=== PATIENT | female | born 1995 | race Caucasian/White ===

== ENCOUNTER 2020-08-27 13:59 | Emergency (ER) | payer OTHER, SELFPAY ==
[2020-08-27 14:01] VITALS: BP 149/87; PULSE 115; RESP 18; O2SAT 100; BMI 27.4
--- NOTE | 2020-08-27 14:30 | ED_ITS ---
HPI - Psych General Chief Complaint: Psychiatric Symptoms Stated Complaint: crisis Time Seen by Provider: 08/27/20 14:15 Source: patient Mode of arrival: ambulatory Limitations: no limitations History of Present Illness HPI Narrative: 24 y/o female with history of anxiety and depression presents with overwhelming depression and vague suicidal thoughts for the last 1 month. She states for the last 4-5 days she has not gotten off of her couch. She has visions and dreams of what it would be like if she weren't alive but she denies a specific plan. Has never attempted suicide in the past. She has been off of her antidepressant for over 1 year. She has a difficult time following up with her doctors and taking care of herself. She admits to using cocaine frequently since March. Denies other drug use or ETOH use. Related Data Home Medications Medication Instructions Recorded Confirmed bupropion HCl 150 mg 24 hr tablet, 150 mg PO QAM 06/08/20 extended release fluoxetine 20 mg capsule 20 mg PO DAILY 06/08/20 Allergies Allergy/AdvReac Type Severity Reaction Status Date / Time No Known Allergies Allergy Verified 08/27/20 14:09 [No Known Allergies*] Review of Systems Review of Systems: Constitutional: No Fever, No Chills Cardiovascular: No Chest Pain, No SOB Respiratory: No Cough, No Sputum Gastrointestinal: No Nausea, No Vomiting, No Diarrhea, No abdominal Pain Genitourinary: No Dysuria, No Urinary Frequency, No Hematuria Musculoskeletal: No joint pain, +Myalgias Skin: No Skin Lesions, No rash Neuro: No Weakness, No Numbness, No Dizziness, + Headache Psych:+ Anxiety/Panic, + Depression Heme/Lymph: No Bruising, No Lymphadenopathy [facility] Past Medical History Attestation statement: The following information was validated with the patient. Medical History Anxiety, generalized Depression, major, recurrent, moderate Surgical History (Updated 06/08/20 @ 14:23 by NICOLE Hawthorne, DAMASO) No pertinent past surgical history Family History Family History (Updated 06/08/20 @ 14:24 by NICOLE Hawthorne, DAMASO) Father No problems noted. Mother No problems noted. Paternal Grandfather Cancer Brother No problems noted. Brother No problems noted. Social History Social History Alcohol intake: current Alcohol intake frequency: holidays/special occasions only Smoking Status: Never smoker Use of substances other than those prescribed or required for medical reasons: Yes Substance Use Type: Crack/Cocaine and Marijuana Substance Use Frequency: Daily Last Used Substance: Just Prior to Admission Advance Directives: No Advance Directives Information Provided: Yes Physical Exam Vital Signs: Vital Signs: Last Vital Signs Temp 98.8 F 08/27/20 16:09 Pulse 73 08/27/20 16:09 Resp 16 08/27/20 16:09 BP 128/80 08/27/20 16:09 Pulse Ox 99 08/27/20 16:09 Body Mass Index 27.4 Appearance: Alert. Oriented X3. No acute distress. Eyes: Pupils equal, round and reactive to light. ENT: Pharynx normal. Neck: Normal inspection. Neck supple. CVS: Normal heart rate and rhythm. Pulses normal. Respiratory: No respiratory distress. Breath sounds normal. Abdomen: Soft and nontender. +BS x4 Skin: Skin warm and dry. Normal skin color. Normal skin turgor. No rashes. Extremities: No lower extremity edema. Neuro: Oriented X 3. No motor deficit. No sensory deficit. Speaks in clear sentences Psych: depressed with good insight, not suicidal, no delusions, linear thought process Course Course Course Narrative: 24 y/o female presenting with severe depression and vague SI thoughts. Recently missed out on a respite bed which she seems interested in pursuing now. Will get Utox and UA and CARE Team evaluation. ?EATS bed given her cocaine use. Will monitor closely. Low risk for self harm in the ED. MDM - Psych Lab Data Labs: Lab Results 08/27/20 Range/Units 15:04 COVID-19 ([facility]) Negative (Negative) COVID-19 Clin Com See Note Discharge Plan Discharge Clinical Impression: Depression, major, recurrent, moderate
--- NOTE | 2020-08-27 14:31 | MHC.CARE ---
CARE team contacted [facility] re: pt who presented to ED at the recommendation of N crisis. Pt was not evaluated by [facility] prior to arrival. Due to pt's insurance, once medically cleared pt will be seen by CARE team for crisis assessment.
--- NOTE | 2020-08-27 14:52 | PC.NURSE ---
patient a&ox3, pt states she has had felt very depressed, patient was tearful while this nurse was speaking with her, pt states since march she started using cocaine daily also smokes pot daily and feels guilty over her drug use, pt states at times while laying on her couch at home that she envisions jumping off a bridge to kill herself however she stated that she doesnt have the guts to follow through with her thoughts. patient is aware that we need a urine sample when she is able and that she will have a crisis consult while here.
[2020-08-27 15:32] LABS: COVID-19 Test Negative (Negative); IDNOW Serial# 9DD0AD1C
[2020-08-27 16:09] VITALS: BP 128/80; PULSE 73; RESP 16; TEMP 37.1; O2SAT 99
[2020-08-27 18:00] VITALS: BP 135/76; PULSE 81; RESP 16; TEMP 36.4; O2SAT 99
--- NOTE | 2020-08-27 18:48 | PC.NURSE ---
patient has been calm/cooperative sitting doing word searches, no c/o pain or discomfort, sitter at bedside, will continue to monitor
--- NOTE | 2020-08-27 19:02 | PC.NURSE ---
care team speaking with patient
[2020-08-27 19:29] LABS: Glucose Urine UA NEG (NEG); Leukocyte Esterase Urine NEG (NEG); Nitrite Urine NEG (NEG); Specific Gravity - Urine <= 1.005 (1.005-1.025); Urine Blood TRACE (NEG); Urine Ketones NEG (NEG); Urine Protein NEG (NEG-TRACE)
[2020-08-27 19:31] LABS: Appearance Urine CLEAR; Color Urine YELLOW
--- NOTE | 2020-08-27 19:40 | MHC.CARE ---
Pt evaluated by CARE team with disposition for inpatient psychiatric treatment. Due to pt not being an acute risk to harm herself, pt will discharge from ED this evening and return home to await planned facility admission. Pt reported that she is able to self-preserve, has no hx of suicide attempts or self harm, and will be home with her fiance. CARE team will fax pt's assessment to [facility] for review. Pt has been instructed to call the facility in the morning for to schedule possible walk-in admission. CARE team will also present pt's evaluation to in the morning for possible admission, if an appropriate bed is available. CARE team to follow up with pt ~9AM for update re: possible admission to [facility] and if will or will not be able to accommodate admission.
[2020-08-27 19:43] LABS: RBC Urine 0-2 /HPF (0); Squamous Epithelial Cell Urine TRACE /LPF; WBC Urine 0-2 /HPF (0-4)
[2020-08-27 19:44] LABS: UPreg QC Valid YES; Urine Pregnancy NEGATIVE (NEGATIVE)
[2020-08-27 20:00] VITALS: BP 123/75; PULSE 71; RESP 16; TEMP 36.9; O2SAT 99
--- NOTE | 2020-08-28 15:37 | MHC.CARE ---
Disposition update: Voluntary bedsearch exhausted for today. Pt has been referred for PHP at [facility], with intake scheduled for 7:30am 08/29/20 with a same day program start.
== END 2020-08-27 21:09 | disposition home or self-care (01) ==
PROVIDERS: Physician Assistant; Emergency Provider Emergency Medicine Emergency Medical Services; PCP Internal Medicine
DX: F33.1 Major depressive disorder, recurrent, moderate (principal); R45.851 Suicidal ideations; F14.90 Cocaine use, unspecified, uncomplicated; F12.90 Cannabis use, unspecified, uncomplicated; Z79.899 Other long term (current) drug therapy
CPT/HCPCS: 36415; 81001; 81025; 87635; 99285

== ENCOUNTER 2020-09-13 05:07 | Emergency (ER) | payer OTHER, SELFPAY ==
[2020-09-13 05:38] VITALS: BP 138/80; PULSE 86; RESP 18; TEMP 36.8; O2SAT 100; BMI 28.3
--- NOTE | 2020-09-13 05:42 | ED_ITS ---
HPI - General Adult General Chief complaint: General Medical Stated complaint: Sinus infection Time Seen by Provider: 09/13/20 05:42 Source: patient Mode of arrival: ambulatory History of Present Illness HPI narrative: This is a 25-year-old female who states that she relapsed last night with cocaine and is now presenting with complaints that after starting the cocaine of both nares she developed acute pain up into the right side of her f yayo to include her eye but denies visual disturbance or pain on ocular movement and has tried multiple times to blow her nose in an effort to relieve the pressure but states this is not been possible. She states the pain extends posteriorly across the right side of her scalp. Related Data Previous Rx's Medication Instructions Recorded fluoxetine [Prozac] 20 mg PO DAILY #14 cap 08/29/20 trazodone 50 mg PO BEDTIME PRN #14 tab 08/29/20 baclofen 5 mg PO TID #30 tab 09/07/20 Allergies Allergy/AdvReac Type Severity Reaction Status Date / Time No Known Allergies Allergy Verified 08/27/20 14:09 [No Known Allergies*] Review of Systems Review of Systems: Pertinent positives and negatives as stated in HPI 10 point review of systems is otherwise negative. [facility] Past Medical History Source: nursing notes reviewed Medical History Anxiety, generalized Depression, major, recurrent, moderate Surgical History No pertinent past surgical history Family History Family History Father No problems noted. Mother No problems noted. Paternal Grandfather Cancer Brother No problems noted. Brother No problems noted. Social History Social History Household Members: Significant Other Alcohol intake: current Alcohol intake frequency: 0-2 drinks per day Smoking Status: Current every day smoker Years Smoked: Since age 18 Use of substances other than those prescribed or required for medical reasons: Yes Substance Use Type: Crack/Cocaine Substance Use Frequency: Chronic Longstanding Last Used Substance: Hours (ago) Advance Directives: No Physical Exam Vital Signs: Vital Signs: Last Vital Signs Temp 98.2 F 09/13/20 05:38 Pulse 86 09/13/20 05:38 Resp 18 09/13/20 06:00 BP 138/80 09/13/20 05:38 Pulse Ox 100 09/13/20 05:38 Body Mass Index 28.3 VITAL SIGNS: Reviewed. GENERAL: Well developed, well nourished, in no acute distress. HEAD: Normocephalic/atraumatic, EYES: PERRLA, EOMI intact without pain, no nystagmus EARS: Ext canals without abnormality, TMs non-bulging and non-erythematous NOSE: Congested bilaterally, no turbinate inflammation, null epistaxis, no noted perforations in the mucosa OROPHARYNX: no oral lesions noted, posterior pharynx clear NECK: Supple, no adenopathy LUNGS: Normal breath sounds. No adventitious sounds or accessory muscle use. SpO2<100> CARDIOVASCULAR: Regular rate and rhythm without noted murmurs ABDOMEN: Soft, non-tender, non-distended with bowel sounds. NEUROLOGIC: Alert and oriented x 4. Course Course Course Narrative: This is a 25-year-old female with development of sinus pain after snorting cocaine. Will provide combination analgesics as well as saline, however patient was informed that this may take some time to subside due to the amount of vasoconstriction involved. On re-evaluation patient reports complete resolution of her symptoms and states she is feeling much better. She will be discharged home in stable condition. Discharge Plan Discharge Clinical Impression: Cocaine abuse Patient Disposition: Home, Self-Care Instructions: Cocaine Abuse (ED), Sinusitis (ED) Additional Instructions: Do not hesitate to return to the emergency department should you experience any acute worsening of your symptoms. Prescriptions: No Action fluoxetine [Prozac] 20 mg capsule 20 mg PO DAILY Qty: 14 RF: 0 trazodone 50 mg tablet 50 mg PO BEDTIME PRN (Reason: sleep) Qty: 14 RF: 0 baclofen 5 mg tablet 5 mg PO TID Qty: 30 RF: 0 Referrals: Taryn Chen MD [Primary Care Provider] - 2 days
[2020-09-13 06:00] VITALS: RESP 18
--- NOTE | 2020-09-13 06:04 | PC.NURSE ---
provider at bedside.
[2020-09-13] MEDS: Acetaminophen 325 MG TABLET 975 MG PO (06:25)
[2020-09-13] MEDS: Ketorolac Tromethamine 15 MG/ML VIAL IM (06:25)
== END 2020-09-13 07:43 | disposition home or self-care (01) ==
PROVIDERS: Emergency Provider Student in an Organized Health Care Education/Training Program; PCP Internal Medicine
DX: F14.19 Cocaine abuse with unspecified cocaine-induced disorder (principal); J32.9 Chronic sinusitis, unspecified; Z79.899 Other long term (current) drug therapy; Z71.51 Drug abuse counseling and surveillance of drug abuser; F17.200 Nicotine dependence, unspecified, uncomplicated; Z71.6 Tobacco abuse counseling
CPT/HCPCS: 96372; 99284; J1885

== ENCOUNTER 2020-09-19 14:28 | Outpatient (REF) | payer OTHER, SELFPAY ==
--- NOTE | 2020-09-19 15:02 | ECG_ITS ---
Test Reason : COCAINE USE DISORDER Blood Pressure : / mmHG Vent. Rate : 065 BPM Atrial Rate : 065 BPM P-R Int : 120 ms QRS Dur : 094 ms QT Int : 370 ms P-R-T Axes : 018 066 047 degrees QTc Int : 384 ms Normal sinus rhythm Normal ECG No previous ECGs available Referred By: Tyesha Ho Electronically Signed By:ALEX CORRALES
[2020-09-19 15:49] LABS: MANUAL DIFF FLAG NO
[2020-09-19 15:54] LABS: Basophils Absolute Auto 0.1 X10*3/uL (0.0-0.2); Basophils Percent Auto 0.6 % (0-2); Eosinophils Absolute Auto 0.6 X10*3/uL (0.0-0.4); Hemoglobin 13.1 g/dl (12.0-16.0); Imm Gran Abs Auto 0.04 X10*3/uL (0.00-0.03); Imm Gran Pct Auto 0.3 % (0.0-0.4); Lymphocytes Absolute Auto 3.9 X10*3/uL (1.2-4.9); Mean Corpuscular HGB Conc 32.8 g/dl (31.0-35.0); Mean Corpuscular Hemoglobin 28.9 pg (27.0-33.0); Mean Corpuscular Volume 88.1 fL (80-98); Mean Platelet Volume 9.7 fL (9.4-12.3); Monocytes Absolute Auto 0.9 X10*3/uL (0.1-1.2); Monocytes Percent Auto 7.4 % (2-11); Neutrophils Absolute Auto 6.3 X10*3/uL (2.0-8.3); Neutrophils Percent Auto 53.7 % (45-73); Platelet Count 376 X10*3/uL (160-400); Red Blood Count 4.54 X10*6/uL (4.20-5.50); Red Cell Distribution Width 12.8 % (11.0-16.0); White Blood Count 11.7 X10*3/uL (4.8-10.8)
[2020-09-19 16:22] LABS: Alanine Aminotransferase 8 U/L (0-31); Albumin Level 4.2 g/dL (3.5-5.0); Alkaline Phosphatase 101 U/L (39-117); Anion Gap 14 (12-20); Aspartate Amino Transferase 13 U/L (5-31); Bilirubin Total 0.5 mg/dL (0.0-1.0); Blood Urea Nitrogen 6 mg/dL (9-16); Calcium 8.9 mg/dL (8.4-10.2); Carbon Dioxide 24 mmol/L (22-29); Chloride 105 mmol/L (96-108); Estimated Glomerular Filt Rate > 60; Glucose Random 85 mg/dL (60-115); Magnesium 2.3 mg/dL (1.6-2.6); Potassium 4.2 mmol/L (3.3-5.1); Sodium 139 mmol/L (135-145); Total Protein 7.1 g/dL (6.5-8.0)
[2020-09-19 16:48] LABS: Free T4 (Free Thyroxine) 0.87 ng/dL (0.71-1.85); Thyroid Stimulating Hormone 2.69 uIU/mL (0.32-4.0); Vitamin D 25-OH Total 10.6 ng/mL (>30)
[2020-09-19 16:54] LABS: Folate 6.1 ng/mL (> or = 4.0); Vitamin B12 312 pg/mL (200-900)
[2020-09-20 08:09] LABS: Estimated Average Glucose 105 mg/dL; Hemoglobin A1c % 5.3 %
== END 2020-09-19 14:29 | disposition home or self-care (01) ==
LOC: HO.LAB 14:28
PROVIDERS: PCP Internal Medicine; Visit Provider Clinical Nurse Specialist Psychiatric/Mental Health, Adult
DX: F14.10 Cocaine abuse, uncomplicated (principal)
CPT/HCPCS: 36415; 80053; 82306; 82607; 82746; 83036; 83735; 84439; 84443; 85025; 93005

== ENCOUNTER 2020-09-22 12:30 | Outpatient (RCR) | payer OTHER, SELFPAY ==
[2020-08-29 12:10] VITALS: BMI 27.4
--- NOTE | 2020-08-29 12:41 | PC.ADMIT ---
Patient is a 24 year old female who was seen and referred to PHP by the Care Team in [facility] d/t increase in depression and experiencing intrusive thoughts of and suicide for the past month. Patient denied intent or plan to act on intrusive thoughts. Patient reports that she has not been going to work d/t symptoms and has been using cocaine and marijuana to cope with her symptoms. Patient wants to learn healthier coping skills. Patient stated she is here, To find some sort of stability as for the past few months I have no motivation. Looking for some hope to move on and deal with things . Patient presents with depressed mood and anxious affect. Denied current SI. Stated she feels more hopeful now that she is getting mental health treatment. Reports Substance use including daily use of cocaine last use 3 days ago and daily use of marijuana last use last night. Denied any withdrawal sxs. Educated patient about the negative mental and physical effects of cocaine and marijuana. Recommended patient attend online substance use groups in addition to PHP for more support. Patient is not currently on prescription medications. hx of prescriptions for Wellbutrin and Prozac 9 months to 1 year ago.
--- NOTE | 2020-08-29 13:34 | P.HPPSP_ITS ---
HPI Chief Complaint: Anxiety - CARE Referral Sources of Information: patient interviewed, chart reviewed and crisis/core team assessment reviewed HPI Narrative: Ms. Herbert is a 24 year-old woman with hx of MDD and cocaine abuse who was referred by Care Team to PHP after she self-presented to [facility] reporting increased depression, hopeless/helpless, poor sleep, anhedonia, intermittent suicidal ideation without a plan. Pt reports she has been on Prozac for some years prescribed by her PCP. She reports she stopped prozac early in 2019 as she was doing better in terms of depression. She reports she started using cocaine in March 2020 and in the past two months she has been using about 1-2grams daily. She reports that cocaine use has affected her relationship with her fiance, her financial situation and ability to maintain a job. She reports motivation to stop using. She reports last use was 3 days ago. She does admit to having cravings. Past Psychiatric History: Inpatient: none OP: none Suicide attempt: none Past medication trials: prozac Medical Evaluation Reviewed: Yes [facility] Medical History Anxiety, generalized Depression, major, recurrent, moderate Surgical History (Updated 06/08/20 @ 14:23 by Jolene Gómez, NICOLE, [facility]) No pertinent past surgical history Family History: mother with depression Social History: Pt lives with fiance of 8 years. She works at [employer]. Substance History: Cocaine: since March 2020, daily 1-2 grams daily. Alcohol: during holidays Opioids: denies amphetamines: denies LSD: denies Diagnostics Vital Signs (24Hr): Body Mass Index 27.4 Meds/Allergies Allergies Allergies Allergy/AdvReac Type Severity Reaction Status Date / Time No Known Allergies Allergy Verified 08/27/20 14:09 [No Known Allergies*] Mental Status Exam Mental Status Exam Narrative: Appearance: casually groomed, good hygiene, in NAD Behavior: calm, cooperative TP: linear TC: no signs of psychosis, hopeless/helpless Psychomotor: no agitation or retardation noted Speech: clear, normal rate/rhythm/volume, spontaneous Mood: depressed Affect: congruent, blunted VH/AH: none Delusions: none Insight/judgment: fair x 2. Memory/cog: alert, oriented x 3. grossly intact to conversational testing. Assessment & Plan Assessment & Plan (1) Depression, major, recurrent, moderate: Status: Acute Code(s): F33.1 - Major depressive disorder, recurrent, moderate Assessment and Plan: 1. Start Prozac 20mg po daily 2. Start Trazodone 50mg po qhs prn sleep (2) Cocaine abuse: Status: Acute Code(s): F14.10 - Cocaine abuse, uncomplicated Assessment and Plan: 1. Baclofen 5mg po TID for cocaine cravings. Certification I certify that partial hospital treatment is medically necessary due to the symptoms and problems resulting from the patient's mental illness and the failure to treat the patient at the partial hospital level of care would likely result in the patient requiring inpatient psychiatric care which could not be prevented at a less intensive level of care. Telehealth Telehealth Location of provider rendering services: practice address Location of patient: address on file Patient Identification confirmed using: Name, : Yes Telehealth method: video Patient verbally consented to treatment: Yes Patient verbally consented to billing insurance company: Yes Patient informed of any privacy concerns related to visit: Yes Time spent with patient (mins): 30
--- NOTE | 2020-09-04 13:04 | PC.NURSE ---
Pt called out sick. She said she has a sinus infection and cannot open her eye.
--- NOTE | 2020-09-06 08:32 | PC.NURSE ---
I called and LM for pt asking to talk about program and aftercare. I asked her to pls call.
--- NOTE | 2020-09-06 13:54 | PC.NURSE ---
With patient's permission, I called and put in a referral for [facility]. They took demographic information and said they will call pt with intake information for a therapist and for a medication provider.
--- NOTE | 2020-09-07 12:38 | PC.NURSE ---
Patient called tearful stating that she relapsed last night on cocaine. Feeling guilty and ashamed. Stated she was proud of herself as she was having cravings this past weekend however did not use and she was feeling hopeful. She has not been able to talk about her relapse in group as she is feeling too guilty. Talked about the importance of talking about this in group and getting more support. Patient wants to continue with groups and agreed to talk about relapse in groups. Stated she is unable to go into a substance IOP at this time as she does not have the time to take off from work as she is currently in this program. Patient stated she wants to work on her depression as she feels this is contributing to her use. Patient agreed to do online substance use groups while in [facility] for more support. She also stated she can not afford the co-pays for her medications however has been taking prozac as she still has this medications. Let patient know that she has no co-pay for prozac and 0.41 cents for Trazodone, 7.71 for baclofen. Patient was glad to hear this. Marko dietz.
--- NOTE | 2020-09-07 16:45 | HO.PHPPROGNO ---
Subjective Subjective Date of Service: 09/07/20 Reason For Visit: Anxiety - CARE Referral Interim History: Pt reports yesterday was very difficult and she relapsed on cocaine- 2 grams. Today feeling shame, guilt, down on herself. Reports problems with motivation, difficulty in opening up, feeling emotional. States she left a voice mail with PHP team and expects a call back. Regarding medications, pt has not started Baclofen, Trazodone. She has some left over Prozac which she is using. She does not believe she has enough money to cotton picker meds. She also feels guilt as she believes if she did cotton picker medications last week it would have prevented relapse. Sleep is interrupted-last evening went to bed at 2am after use. Discussed getting back on track, talking in group about relapse, connecting with PHP team regarding relapse. TW called [facility]-pt's medications in total are $8.00 which she was pleased about and believes she can afford. Medication Compliance: No Side effects from medications: No Attending Groups: Yes Review of Systems Constitutional: Reports headache(s) Reports headache(s), Reports nasal congestion, Reports nasal discharge, Reports sinus pain and Reports sinus pressure Comments: -Believes she has symptoms of sinus infection. Reports headache(s) Mental Status Exam Mental Status Exam Patient Appearance: Appropriate Patient Orientation: Person, Place, Time and Situation Level of Consciousness: Awake and Alert Patient Behavior: Talkative, Cooperative, Anxious, Fearful, Fatigued, Distractible, Good Eye Contact and Crying Mood Description: Depressed and Anxious Affect Description: Flat Patient Cognition Impaired: No Ability to Follow Directions: Good Speech Pattern: Spontaneous Speech Memory Description: Intact Hallucinations: None Delusions: Not Present Thought Process: Intact Thought Content: positive for Intact Depressive Symptoms: Increased Anxiety, Insomnia, Diff. Making Decisions, Increased Irritability, Difficulty Sleeping, Crying Spells, Feelings of Worthlessness, Hopelessness, Feelings of Guilt, Unhappiness, Increased Fatigue, Thoughts of /Suicide (denies SI plan or intent), Low Self Esteem and Loss of Energy Judgement: Fair Diagnostics Vital Signs (24Hr): Body Mass Index 27.4 Labs Labs: We will order labs and EKG to eval pt after relapse. She is more than willing to have these done to make sure she is doing OK. Assessment & Plan Assessment & Plan (1) Depression, major, recurrent, moderate: Status: Acute Code(s): F33.1 - Major depressive disorder, recurrent, moderate Assessment and Plan: Pt will cotton picker her prescriptions (2) Anxiety, generalized: Status: Acute Code(s): F41.1 - Generalized anxiety disorder (3) Cocaine abuse: Status: Acute Code(s): F14.10 - Cocaine abuse, uncomplicated Assessment and Plan: Labs, EKG. Pt will begin to use Baclofen Certification I certify that partial hospital treatment is medically necessary due to the symptoms and problems resulting from the patient's mental illness and the failure to treat the patient at the partial hospital level of care would likely result in the patient requiring inpatient psychiatric care which could not be prevented at a less intensive level of care. Greater than 50% of the session was spent on counseling and/or coordination of care Discharge Plan Discharge Attending provider: Irvin Ochoa Additional Instructions: Telehealth appointment with Bibi Johnson at [facility] for individual therapy on 09/11/2020 at 1pm. Telehealth appointment with Derick Bonilla at [facility] for a medication management evaluation on 10/12/2020 at 9:20am (1 hour) Telehealth follow-up appointment with Derick Bonilla at [facility] for medication management on 11/06/2020 at 8:40am (20 minutes) Medications: New fluoxetine [Prozac] 20 mg capsule 20 mg PO DAILY Qty: 14 RF: 0 trazodone 50 mg tablet 50 mg PO BEDTIME PRN (Reason: sleep) Qty: 14 RF: 0 Continued baclofen 5 mg tablet 5 mg PO TID Qty: 30 RF: 0 Telehealth Telehealth Location of provider rendering services: practice address Location of patient: address on file Patient Identification confirmed using: Name, : Yes Telehealth method: video Patient verbally consented to treatment: Yes Patient verbally consented to billing insurance company: Yes Patient informed of any privacy concerns related to visit: Yes Time spent with patient (mins): 30
--- NOTE | 2020-09-08 17:04 | PC.NURSE ---
Pt called after the second group. 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 She was a bit tearful and very apologetic. She said she is safe, and is not planning to relapse.
--- NOTE | 2020-09-08 17:06 | PC.NURSE ---
I called and spoke to pt about aftercare, and schedule. She cannot attend tx on Friday, 09/11, as she has an intake at [facility] with a new therapist. Discussed staying safe today, her birthday. Pt is not having cravings to use, but is struggling with aftermath of her relapse.
--- NOTE | 2020-09-13 09:30 | PC.NURSE ---
Pt called out sick. She said she went to the ED last night for a bad headache, and just got out.
--- NOTE | 2020-09-14 14:59 | P.PNPSP_ITS ---
Subjective Subjective Date of Service: 09/14/20 Reason For Visit: Anxiety - CARE Referral Interim History: Pt continues to endorse depressed mood. She denies SI/HI. She reports program has been helpful. She just recently started on prozac as she had not picked it up at pharmacy. She did have one relapse on cocaine last week. She has been more open with family and BF about substance use. Medication Compliance: Yes Side effects from medications: No Review of Systems Constitutional: Reports headache(s) Reports headache(s), Reports nasal congestion, Reports nasal discharge, Reports sinus pain and Reports sinus pressure Reports headache(s) Mental Status Exam Mental Status Exam Narrative: Appearance: casually groomed, good hygiene, in NAD Behavior: calm, cooperative TP: linear TC: no signs of psychosis, hopeless/helpless Psychomotor: no agitation or retardation noted Speech: clear, normal rate/rhythm/volume, spontaneous Mood: depressed Affect: congruent, blunted VH/AH: none Delusions: none Insight/judgment: fair x 2. Memory/cog: alert, oriented x 3. grossly intact to conversational testing. Diagnostics Vital Signs (24Hr): Body Mass Index 27.4 Assessment & Plan Assessment & Plan (1) Depression, major, recurrent, moderate: Status: Acute Code(s): F33.1 - Major depressive disorder, recurrent, moderate Assessment and Plan: continue prozac 20mg po daily (2) Anxiety, generalized: Status: Acute Code(s): F41.1 - Generalized anxiety disorder (3) Cocaine abuse: Status: Acute Code(s): F14.10 - Cocaine abuse, uncomplicated Assessment and Plan: Labs, EKG. Pt will begin to use Baclofen Certification I certify that partial hospital treatment is medically necessary due to the symptoms and problems resulting from the patient's mental illness and the failure to treat the patient at the partial hospital level of care would likely result in the patient requiring inpatient psychiatric care which could not be prevented at a less intensive level of care. Greater than 50% of the session was spent on counseling and/or coordination of care Discharge Plan Discharge Attending provider: Irvin Ochoa Additional Instructions: Telehealth appointment with Bibi Johnson at [facility] for individual therapy on 09/11/2020 at 1pm. Telehealth appointment with Derick Bonilla at [facility] for a medication management evaluation on 10/12/2020 at 9:20am (1 hour) Telehealth follow-up appointment with Derick Bonilla at [facility] for medication management on 11/06/2020 at 8:40am (20 minutes) Medications: New fluoxetine [Prozac] 20 mg capsule 20 mg PO DAILY Qty: 14 RF: 0 trazodone 50 mg tablet 50 mg PO BEDTIME PRN (Reason: sleep) Qty: 14 RF: 0 Continued baclofen 5 mg tablet 5 mg PO TID Qty: 30 RF: 0 Telehealth Telehealth Location of provider rendering services: practice address Location of patient: address on file Patient Identification confirmed using: Name, : Yes Telehealth method: video Patient verbally consented to treatment: Yes Patient verbally consented to billing insurance company: Yes Patient informed of any privacy concerns related to visit: Yes
--- NOTE | 2020-09-14 16:24 | PC.NURSE ---
I attempted to call pt to discuss whether or not she wants to extend treatment or discharge tomorrow, as she has been struggling and has expressed ambivalence. Her voicemail was full so I could not leave a message.
--- NOTE | 2020-09-21 12:17 | PC.NURSE ---
Addendum entered by Alison Martin RN 09/22/20 08:38: Lab results done on 08/22/[address] patients PCP Dr Taryn Chen. Original Note: Patient had the following abnormal lab results done on 09/19/20 Bun 6, Vit D 10.6, B 12 312, WBC 11.7 EOS 5, IMGRAN 0.04, EOS Abs 0.06. EKG WNL. Aida Ho APRN is aware. Will fax results to patient's PCP.
--- NOTE | 2020-09-22 13:41 | HO.PHPPROGNO ---
Subjective Subjective Date of Service: 09/22/20 Reason For Visit: Anxiety - CARE Referral Interim History: The patient reported improvement of depression with Prozac. She reported more energy, normal sleep and resolution of dysphoria. No evidence of side effects. She denied relapse on cocaine. She is going to start a new job soon and she is excited. No safety concerns Medication Compliance: Yes Side effects from medications: No Review of Systems Acute medical concerns: No Medical Review of Systems: unchanged Mental Status Exam Mental Status Exam Patient Appearance: Well Grooomed and Appropriate Patient Orientation: Person, Place, Time and Situation Level of Consciousness: Awake Patient Behavior: Appropriate Mood Description: Calm Affect Description: Happy and Relaxed Ability to Follow Directions: Good Speech Pattern: Clear Memory Description: Intact Hallucinations: None Delusions: Not Present Thought Process: Goal Oriented Thought Content: positive for Intact Judgement: Fair Diagnostics Vital Signs (24Hr): Body Mass Index 27.4 Assessment & Plan Assessment & Plan (1) Depression, major, recurrent, moderate: Status: Acute Code(s): F33.1 - Major depressive disorder, recurrent, moderate Assessment and Plan: Improvement of depressive symptoms (2) Anxiety, generalized: Status: Acute Code(s): F41.1 - Generalized anxiety disorder Assessment and Plan: Improved. Continue Prozac and Trazodone PRN Certification I certify that partial hospital treatment is medically necessary due to the symptoms and problems resulting from the patient's mental illness and the failure to treat the patient at the partial hospital level of care would likely result in the patient requiring inpatient psychiatric care which could not be prevented at a less intensive level of care. Greater than 50% of the session was spent on counseling and/or coordination of care Discharge Plan Discharge Attending provider: Irvin Ochoa Additional Instructions: Telehealth appointment with Bibi Johnson at [facility] for individual therapy on 09/11/2020 at 1pm. Telehealth appointment with Derick Bonilla at [facility] for a medication management evaluation on 10/12/2020 at 9:20am (1 hour) Telehealth follow-up appointment with Derick Bonilla at [facility] for medication management on 11/06/2020 at 8:40am (20 minutes) Medications: Continued baclofen 5 mg tablet 5 mg PO TID Qty: 30 RF: 0 trazodone 50 mg tablet 50 mg PO BEDTIME PRN (Reason: sleep) Qty: 30 RF: 1 fluoxetine [Prozac] 20 mg capsule 20 mg PO DAILY Qty: 30 RF: 1 Telehealth Telehealth Location of provider rendering services: practice address Location of patient: address on file Patient Identification confirmed using: Name, : Yes Telehealth method: video Patient verbally consented to treatment: Yes Patient verbally consented to billing insurance company: Yes Patient informed of any privacy concerns related to visit: Yes
== END 2020-09-22 23:55 | disposition home or self-care (01) ==
LOC: HO.PHPA 12:30
PROVIDERS: Visit Provider Psychiatry & Neurology Psychiatry
DX: F33.1 Major depressive disorder, recurrent, moderate (principal); F41.1 Generalized anxiety disorder; F14.10 Cocaine abuse, uncomplicated
CPT/HCPCS: 90791; 90853; 99213

== ENCOUNTER 2021-10-16 14:06 | Emergency (ER) | payer MEDICAID, SELFPAY ==
[2021-10-16 15:13] VITALS: BP 118/71; PULSE 86; RESP 18; TEMP 37.2; O2SAT 100; BMI 32.9
--- NOTE | 2021-10-16 17:35 | ED.FALL ---
HPI - Fall General Chief Complaint: Fall Stated Complaint: Fall at work/ head inj Time Seen by Provider: 10/16/21 17:27 Source: patient Mode of arrival: ambulatory Limitations: no limitations History of Present Illness HPI Narrative: 26-year-old female with a history of depression, anxiety presents to the ER from [facility] for evaluation of a head injury sustained at work earlier today. Patient reports she was walking down the stairs in high heel shoes when she tripped on the bottom to stairs and fell and hit her head against a window sill. She reports hitting the front of her forehead. She did not pass out or lose consciousness. Immediately after the injury she felt some slight nausea and dizziness which has since resolved. She denies any headache, neck pain, lethargy, confusion, weakness, tingling, numbness. Time of injury was approximately 5 hours ago complaint: fall Onset (ago): hour(s) Fall from: standing Fall witnessed: no Place fall occurred: work Loss of consciousness: none Prolonged down time: no Symptoms prior to fall: none Context: tripped/slipped Location of injury: head Severity: mild Severity scale (1-10): 3 Quality: aching Associated symptoms (after fall): headache and other (Dizziness) Related Data Previous Rx's Medication Instructions Recorded fluoxetine 40 mg capsule 40 mg PO DAILY 90 Days #90 cap 08/01/21 Allergies Allergy/AdvReac Type Severity Reaction Status Date / Time No Known Allergies Allergy Verified 08/01/21 14:59 [No Known Allergies*] Review of Systems Review of Systems: Constitutional: No Fever, No Chills ENT/Mouth: No sore throat, No Rhinorrhea, No Swallowing Difficulty Eyes: No Eye Pain, No Swelling, No vision changes Cardiovascular: No Chest Pain, No SOB Respiratory: No Cough, No Sputum Gastrointestinal: No Nausea, No Vomiting, No Diarrhea, No abdominal Pain Musculoskeletal: No joint pain, No Myalgias Skin: No Skin Lesions, No rash Neuro: No Weakness, No Numbness, No Dizziness, No Headache Psych: No Anxiety/Panic, No Depression Heme/Lymph: No Bruising, No Lymphadenopathy PMFSH Past Medical History Medical History Anxiety, generalized Depression, major, recurrent, moderate Surgical History No pertinent past surgical history Family History Family History Father No problems noted. Mother No problems noted. Paternal Grandfather Cancer Brother No problems noted. Brother No problems noted. Other Mental health disorder Substance use disorder Social History Social History Household Members: Significant Other Housing: Apartment Alcohol intake: current Alcohol intake frequency: 0-2 drinks per day Patient Tobacco Use Status: Current everyday Tobacco user Cigarettes Per Day: 6 Years Smoked: Since age 18 Substance Use Type: Crack/Cocaine Advance Directives: No Advance Directives Information Provided: No Current occupational status: employed Physical Exam Vital Signs: Vital Signs: Last Vital Signs Temp 98.9 F 10/16/21 15:13 Pulse 86 10/16/21 15:13 Resp 18 10/16/21 15:13 BP 118/71 10/16/21 15:13 Pulse Ox 100 10/16/21 15:13 BMI result Body Mass Index 32.9 Appearance: Alert. Oriented X3. No acute distress. Head: small palpable hematoma of the upper forehead with mild developing ecchymosis Eyes: Pupils equal, round and reactive to light. ENT: Pharynx normal. No blood in external auditory canals. Neck: Normal inspection. Neck supple. No midline tenderness normal range of motion. CVS: Normal heart rate and rhythm. Pulses normal. Respiratory: No respiratory distress. Breath sounds normal. Abdomen: Soft and nontender. +BS x4 Skin: Skin warm and dry. Normal skin color. Normal skin turgor. No rashes. Extremities: No lower extremity edema. Atraumatic x4, normal range of motion of all joints without any tenderness. Neuro: Oriented X 3. No motor deficit. No sensory deficit. Steady gait, normal speech Course Course Course Narrative: 26-year-old female presents to the ER after she tripped and hit her head on a window so walking down a flight of stairs. She did not lose consciousness. She new Shiley had some mild headache, dizziness, nausea which have since resolved. She has no report of headache, confusion, lethargy, vomiting. She has a benign examination and feels back to her baseline. She would like to go home. At this time we discussed the option of obtaining a CT scan to assess for ICH or other traumatic injury however very low clinical suspicion and shared decision-making was had with the patient we decided against the CT scan at this time. She is stable for discharge home with plan to return to work tomorrow with no restrictions. She will return to the ER if she develops vomiting, lethargy, confusion or any concerning symptoms. Discharge Plan Discharge Clinical Impression: Head injury Patient Disposition: Home, Self-Care Instructions: Head Injury (ED) Additional Instructions: Your examination today was normal. Recommend rest, both physical and mental rest. Avoid excessive screen time. Take Motrin or Tylenol as needed for headache. Apply ice to the area of pain on your head as needed. Follow-up with your doctor as needed If you develop new or worsening symptoms call 911 or come back to the ER for further evaluation. Prescriptions: No Action fluoxetine 40 mg capsule 40 mg PO DAILY 90 Days Qty: 90 1RF Stand Alone Forms: Work/School Release Interventions: ED Discharge Assessment Last Done: 10/16/21 17:44 Discharge Date/Time: 10/16/21 17:48
== END 2021-10-16 17:48 | disposition home or self-care (01) ==
LOC: HO.ED 17:39
PROVIDERS: Emergency Provider Emergency Medicine Emergency Medical Services; PCP Internal Medicine
DX: S09.90XA Unspecified injury of head, initial encounter (principal); G44.309 Post-traumatic headache, unspecified, not intractable; F14.10 Cocaine abuse, uncomplicated; F17.210 Nicotine dependence, cigarettes, uncomplicated; W10.9XXA Fall (on) (from) unspecified stairs and steps, initial encounter; Y93.9 Activity, unspecified; Y92.9 Unspecified place or not applicable; Y99.0 Civilian activity done for income or pay; Z71.6 Tobacco abuse counseling
CPT/HCPCS: 99282; 99283

== ENCOUNTER 2023-01-29 12:13 | Outpatient (AMB) | payer BC, MEDICAID, SELFPAY ==
[2023-01-29 12:20] VITALS: BP 138/82; PULSE 93; O2SAT 98
--- NOTE | 2023-01-29 12:20 | MHC.PC.OV ---
Vital Signs 01/29/23 12:20 Weight 197 lb BP 138/82 Blood Pressure Location Rt brachial Position Sitting Pulse 93 Pulse Source Pulse Oximeter Pulse Oximetry (%) 98 Oxygen Delivery Method Room Air Intake Visit Reasons: Med follow up Allergies No Known Allergies [No Known Allergies*] Allergy (Verified 01/29/23 12:21) Medication List - Last Reconciled 01/29/23 by Taryn Chen MD fluoxetine 40 mg PO DAILY 90 days Tobacco use date assessed: 01/29/23 Dental Screening Dental Screen Date: 01/29/23 Did you have a dental visit in the last 12 months?: Yes Did you have a dental problem in the last 6 months where you did not have access to dental care?: No Was dental information given to patient?: No HPI Med follow up HPI Details Patient is 27-year-old female Patient says that she feels bloated after she eats certain foods and have a strong family history of celiac disease And she is wondering if she does have a gluten sensitivity or intolerance. Patient would like to have labs done she has not had labs in over 3 years. I have placed order to be done fasting She is also due for physical examination Anxiety and depression is stable with fluoxetine 40 mg, I have sent a refill Patient is doing well and has no side effect or any suicidal ideation since she started the medication. She has an IUD which was placed in 2018 it has been 5 years and she has not seen any OBGYN. I have placed a referral for that as well. Follow-up 3 months with physical exam appointment labs to be done before. [facility] Medical History Anxiety, generalized Depression, major, recurrent, moderate Surgical History No pertinent past surgical history Family History Father No problems noted. Mother No problems noted. Paternal Grandfather Cancer Brother No problems noted. Brother No problems noted. Other Mental health disorder Substance use disorder Social History Household Members: Significant Other Housing: Apartment Alcohol intake: current Alcohol intake frequency: 0-2 drinks per day Patient Tobacco Use Status: Current everyday Tobacco user Cigarettes Per Day: 7 Years Smoked: Since age 18 e-Cigarette/Vaping Use: Never Used Substance Use Type: Crack/Cocaine Current occupational status: employed Cognitive needs: No Hearing needs: No Vision needs: No Questionnaire Thrive Questionnaire Date Thrive assessed: 08/01/21 AUDIT C Alcohol Use Questionnaire (AUDIT-C) 1. How often do you have a drink containing alcohol?: Never 3. How often do you have six or more drinks on one occasion?: Never Total Score: 0 Score Reviewed/Action Taken: Yes TIM-7 AMB Questionnaire TIM-7 Date TIM - 7 assessed: 08/01/21 Source: Developed by Drs. Michel Payan, Dana Zaman, Mason Art and colleagues, with an educational angela from [employer]. Review of Systems Const Denies chills and Denies fever(s) ENT Denies epistaxis and Denies nasal discharge Card Denies chest pain Resp Denies chest congestion, Denies cough and Denies hemoptysis GI Denies diarrhea and Denies nausea Skin/Breast Denies rash Neuro Reports no additional complaints Psych Reports no additional complaints Endo Reports no additional complaints Physical exam (Primary Care) Vital Signs: Last Vital Signs Pulse 93 01/29/23 12:20 BP 138/82 01/29/23 12:20 Pulse Ox 98 01/29/23 12:20 Oxygen Delivery Method Room Air 01/29/23 12:20 Tobacco/Smoking Status: Tobacco use Status Tobacco use date assessed 01/29/23 01/29/23 12:22 Patient Tobacco Use Status Current everyday Tobacco 01/29/23 12:22 e-Cigarette/Vaping Use Never Used 01/29/23 12:22 Thrive Assessment: Date of Thrive Assessment Date Thrive assessed 08/01/21 01/29/23 12:22 Const General: cooperative, comfortable and no acute distress Orientation/consciousness: patient oriented x3 HENMT Head: Yes normocephalic Eyes General: appearance normal, both eyes and all related structures Neck Neck: Yes supple Resp Effort & Inspection: normal respiratory effort, no cough and no stridor Cardio Rhythm: regular rhythm Heart sounds: S1 normal heart sound present and S2 normal heart sound present Skin General skin exam: turgor normal Neuro General: patient oriented x3, tone normal and moves all extremities Extrem Right lower extremity: no edema Left lower extremity: no edema Assessment and Plan Assessment & Plan (1) Depression, major, recurrent, moderate: Code(s): F33.1 - Major depressive disorder, recurrent, moderate (2) Anxiety, generalized: Code(s): F41.1 - Generalized anxiety disorder (3) Obesity due to excess calories: Code(s): E66.09 - Other obesity due to excess calories (4) Bloating: Code(s): R14.0 - Abdominal distension (gaseous) (5) Family history of celiac disease: Code(s): Z83.79 - Family history of other diseases of the digestive system (6) IUD check up: Code(s): Z30.431 - Encounter for routine checking of intrauterine contraceptive device Plan Patient is 27-year-old female Patient says that she feels bloated after she eats certain foods and have a strong family history of celiac disease And she is wondering if she does have a gluten sensitivity or intolerance. Patient would like to have labs done she has not had labs in over 3 years. I have placed order to be done fasting She is also due for physical examination Anxiety and depression is stable with fluoxetine 40 mg, I have sent a refill Patient is doing well and has no side effect or any suicidal ideation since she started the medication. She has an IUD which was placed in 2018 it has been 5 years and she has not seen any OBGYN. I have placed a referral for that as well. Follow-up 3 months with physical exam appointment labs to be done before. Orders: Orders Endomysial IgA rflx Titer Today E66.09 - Other obesity due to excess calories, F33.1 - Major depressive disorder, recurrent, moderate, F41.1 - Generalized anxiety disorder, K90.41 - Non-celiac gluten sensitivity, R14.0 - Abdominal distension (gaseous), Z83.79 - Family history of other diseases of the digestive system Complete Blood Count Auto Diff Today E66.09 - Other obesity due to excess calories, F33.1 - Major depressive disorder, recurrent, moderate, F41.1 - Generalized anxiety disorder, R14.0 - Abdominal distension (gaseous), Z83.79 - Family history of other diseases of the digestive system Comprehensive [place]. Panel Fast Today E66.09 - Other obesity due to excess calories, F33.1 - Major depressive disorder, recurrent, moderate, F41.1 - Generalized anxiety disorder, R14.0 - Abdominal distension (gaseous), Z83.79 - Family history of other diseases of the digestive system Lipid Panel Today E66.09 - Other obesity due to excess calories, F33.1 - Major depressive disorder, recurrent, moderate, F41.1 - Generalized anxiety disorder, R14.0 - Abdominal distension (gaseous), Z83.79 - Family history of other diseases of the digestive system TSH reflex Free T4 Today E66.09 - Other obesity due to excess calories, F33.1 - Major depressive disorder, recurrent, moderate, F41.1 - Generalized anxiety disorder, R14.0 - Abdominal distension (gaseous), Z83.79 - Family history of other diseases of the digestive system Transglutaminase Ab IgG Today E66.09 - Other obesity due to excess calories, F33.1 - Major depressive disorder, recurrent, moderate, F41.1 - Generalized anxiety disorder, K90.41 - Non-celiac gluten sensitivity, R14.0 - Abdominal distension (gaseous), Z83.79 - Family history of other diseases of the digestive system Referrals [employer] Referral Z30.431 - Encounter for routine checking of intrauterine contraceptive device Medications: Changed From fluoxetine 40 mg PO DAILY 30 days 30 caps 0RF To fluoxetine 40 mg PO DAILY 90 caps 0RF 90 days Coding Level of Care Code Tele Est Pt Level 4 (04939) Diagnoses Depression, major, recurrent, moderate F33.1 Anxiety, generalized F41.1 Obesity due to excess calories E66.09 Bloating R14.0 Family history of celiac disease Z83.79 IUD check up Z30.431 Additional Codes PHQ-9 - 49272 - PHQ-9 Billing: Y ([id number])
== END 2023-01-29 13:14 | disposition home or self-care (01) ==
PROVIDERS: PCP Internal Medicine; Visit Provider Internal Medicine
DX: F33.1 Major depressive disorder, recurrent, moderate (principal); Z83.79 Family history of other diseases of the digestive system; F41.1 Generalized anxiety disorder; E66.09 Other obesity due to excess calories; R14.0 Abdominal distension (gaseous); Z30.431 Encounter for routine checking of intrauterine contraceptive device
CPT/HCPCS: 99214

== ENCOUNTER 2023-05-06 08:00 | Outpatient (REF) | payer BC, MEDICAID, SELFPAY ==
[2023-05-06 11:21] LABS: MANUAL DIFF FLAG NO
[2023-05-06 11:26] LABS: Basophils Absolute Auto 0.1 X10*3/uL (0.0-0.2); Basophils Percent Auto 0.7 % (0-2); Eosinophils Absolute Auto 0.3 X10*3/uL (0.0-0.4); Eosinophils Percent Auto 2.4 % (0-4); Hematocrit 41.1 % (37.0-47.0); Hemoglobin 13.4 g/dl (12.0-16.0); Imm Gran Abs Auto 0.06 X10*3/uL (0.00-0.03); Imm Gran Pct Auto 0.5 % (0.0-0.4); Lymphocytes Absolute Auto 3.1 X10*3/uL (1.2-4.9); Lymphocytes Percent Auto 23.8 % (20-40); Mean Corpuscular HGB Conc 32.6 g/dl (31.0-35.0); Mean Corpuscular Hemoglobin 28.8 pg (27.0-33.0); Mean Corpuscular Volume 88.4 fL (80.0-98.0); Mean Platelet Volume 10.4 fL (9.4-12.3); Monocytes Absolute Auto 0.5 X10*3/uL (0.1-1.2); Monocytes Percent Auto 3.6 % (2-11); Neutrophils Absolute Auto 8.9 x10*3/uL (2.0-8.3); Platelet Count 443 X10*3/uL (160-400); Red Blood Count 4.65 X10*6/uL (4.20-5.50); Red Cell Distribution Width 13.6 % (11.0-16.0); White Blood Count 12.9 X10*3/uL (4.8-10.8)
[2023-05-06 12:09] LABS: Alanine Aminotransferase 10 U/L (0-31); Alkaline Phosphatase 121 U/L (39-117); Anion Gap 10 (12-20); Aspartate Amino Transferase 18 U/L (5-31); Bilirubin Total 0.4 mg/dL (0.0-1.0); Blood Urea Nitrogen 4 mg/dL (9-16); Calcium 9.5 mg/dL (8.4-10.2); Carbon Dioxide 25 mmol/L (22-29); Chloride 109 mmol/L (96-108); Cholesterol 191 mg/dL (<200); Estimated Glomerular Filt Rate > 60; Glucose Fasting 92 mg/dL (60-99); HDL Cholesterol 34 mg/dL (>40); LDL Cholesterol Calculated 132 mg/dL (<100); Potassium 4.4 mmol/L (3.3-5.1); Sodium 140 mmol/L (135-145); Total Protein 7.2 g/dL (6.5-8.0); Triglycerides 127 mg/dL (<150)
[2023-05-06 12:11] LABS: TSH reflex Free T4 1.52 uIU/mL (0.32-4.0)
[2023-05-13 10:23] LABS: Transglutaminase Ab IgG <1.0 U/mL
[2023-05-13 11:54] LABS: Endomysial IgA Antibody Negative (Negative)
== END 2023-05-06 08:01 | disposition home or self-care (01) ==
LOC: HO.HMGCLDS 08:00
PROVIDERS: PCP Internal Medicine; Visit Provider Internal Medicine
DX: K90.41 Non-celiac gluten sensitivity (principal); F33.1 Major depressive disorder, recurrent, moderate; F41.1 Generalized anxiety disorder; E66.09 Other obesity due to excess calories; R14.0 Abdominal distension (gaseous); Z83.79 Family history of other diseases of the digestive system
CPT/HCPCS: 36415; 80053; 80061; 84443; 85025; 86231; 86364

== ENCOUNTER 2023-05-20 11:43 | Outpatient (AMB) | payer BC, SELFPAY ==
--- NOTE | 2023-05-20 11:52 | A.OFFPC_ITS ---
Vital Signs 05/20/23 12:06 Height 5 ft 2 in Weight 187 lb 4 oz BMI 34.2 BP 120/72 Blood Pressure Location Rt brachial Position Sitting Pulse 65 Pulse Source Pulse Oximeter Pulse Oximetry (%) 99 Oxygen Delivery Method Room Air Intake Visit Reasons: Annual PE Allergies No Known Allergies [No Known Allergies*] Allergy (Verified 05/20/23 12:07) Medication List - Last Reconciled 05/20/23 by Taryn Chen MD fluoxetine 40 mg PO DAILY 90 days Tobacco use date assessed: 05/20/23 Dental Screening Dental Screen Date: 05/20/23 Did you have a dental visit in the last 12 months?: Yes Did you have a dental problem in the last 6 months where you did not have access to dental care?: No Was dental information given to patient?: Patient has dentist HPI Annual PE HPI Details Physical exam appointment Labs done recently reviewed with the patient Alkaline phosphatase is slightly elevated we will be repeating liver enzymes again in 2 months Patient has appointment with [facility] come up 01 of July Anxiety stable with fluoxetine 40 mg Follow-up August [facility] Medical History Anxiety, generalized Depression, major, recurrent, moderate Surgical History No pertinent past surgical history Family History Father No problems noted. Mother No problems noted. Paternal Grandfather Cancer Brother No problems noted. Brother No problems noted. Other Mental health disorder Substance use disorder Household Members: Significant Other Housing: Apartment Alcohol intake: current Alcohol intake frequency: 0-2 drinks per day Patient Tobacco Use Status: Current everyday Tobacco user Cigarettes Per Day: 7 Years Smoked: Since age 18 e-Cigarette/Vaping Use: Never Used Substance Use Type: Crack/Cocaine Current occupational status: employed Cognitive needs: No Hearing needs: No Vision needs: No Questionnaire PHQ-9 Over the last 2 weeks, how often have you been bothered by any of the following problems? 1. Little interest or pleasure in doing things: several days 2. Feeling down, depressed, or hopeless: several days 3. Trouble falling or staying asleep, or sleeping too much: not at all 4. Feeling tired or having little energy: more than half the days 5. Poor appetite or overeating: nearly every day 6. Feeling bad about yourself - or that you are a failure or have let yourself or your family down: nearly every day 7. Trouble concentrating on things, such as reading the newspaper or watching television: not at all 8. Moving or speaking so slowly that other people could have noticed. Or the opposite - being so fidgety or restless that you have been moving around a lot more than usual: not at all 9. Thoughts that you would be better off or of hurting yourself in some way: not at all Total score: 10 Depression Screening Interpretation: Positive Depression Screening Follow-up: Existing condition and In treatment Depression Screening Done: Yes 65258 - PHQ-9 Billing: Yes Source: Developed by Drs. Michel Payan, Dana Zaman, Mason Art and colleagues, with an educational angela from [employer]. Thrive Questionnaire Date Thrive assessed: 05/20/23 I am a: Patient What is your living situation today?: I have a steady place to live Within the past 12 months, did the food you bought not last and you didn't have the money to get more?: Never true Within the past 12 months, did you worry whether your food would run out before you got money to buy more?: Never true Do you have trouble paying for medicines?: No Do you have trouble getting transportation to medical appointments?: No Do you have trouble paying your heating and electricity bill?: No Do you have trouble taking care of your child, family member or friend?: No Do you have trouble with day-to-day activities such as bathing, preparing meals, shopping, managing finances, etc.?: No Are you currently unemployed and looking for a job?: No Are you interested in more education?: No Please select the resources that you would like help with: None Currently or been in a relationship where the following occur: no concerns reported AUDIT C Alcohol Use Questionnaire (AUDIT-C) 1. How often do you have a drink containing alcohol?: Never 3. How often do you have six or more drinks on one occasion?: Never Total Score: 0 Score Reviewed/Action Taken: Yes TIM-7 AMB Questionnaire TIM-7 Date TIM - 7 assessed: 05/20/23 Feeling nervous, anxious, or on edge: 1 = Several days Not being able to stop or control worryin = Not at all Worrying too much about different things: 0 = Not at all Trouble relaxin = Several days Being so restless that it is hard to sit still: 1 = Several days Becoming easily annoyed or irritable: 0 = Not at all Feeling afraid as if something awful might happen: 0 = Not at all Total TIM-7 score (0-4 normal; 5-9 mild; 10-14 moderate; 15-21 severe): 3 Source: Developed by Drs. Michel Payan, Dana Zaman, Mason Art and colleagues, with an educational angela from [employer]. TIM-7 Assessment Billing TIM-7 Assessment Tool: TIM-7 Assessment 79637 Review of Systems Const Denies chills, Denies fever(s) and Denies headache(s) Eyes Denies blurry vision ENT Denies headache(s), Denies nasal discharge, Denies nasal obstruction, Denies odynophagia and Denies sinus pain Card Denies chest pain at rest and Denies chest pain with activity Resp Denies cough and Denies hemoptysis GI Denies diarrhea, Denies odynophagia, Denies vomiting and Denies hematemesis Reports as per HPI Musc Denies abnormal gait Skin/Breast Reports as per HPI Neuro Denies Neuro-related abnormal movements, Denies Abnormal speech present, Denies abnormal gait, Denies headache(s) and Denies Sensory deficit (Neuro) Psych Denies mood swings and Denies paranoia Endo Reports as per HPI Brandan/Lymph Reports as per HPI Aller/Immun Reports as per HPI Physical exam (Primary Care) Vital Signs: Last Vital Signs Pulse 65 05/20/23 12:06 BP 120/72 05/20/23 12:06 Pulse Ox 99 05/20/23 12:06 Oxygen Delivery Method Room Air 05/20/23 12:06 BMI result Body Mass Index 34.2 Tobacco/Smoking Status: Tobacco use Status Tobacco use date assessed 05/20/23 05/20/23 12:07 Patient Tobacco Use Status Current everyday Tobacco 05/20/23 11:53 e-Cigarette/Vaping Use Never Used 05/20/23 11:53 PHQ-9: PHQ-9 Score PHQ-9: Total score 10 05/20/23 12:25 Depression Screening Interpretation: Positive Depression Screening Follow-up: Existing condition and In treatment Thrive Assessment: Date of Thrive Assessment Date Thrive assessed 05/20/23 05/20/23 12:25 Currently or been in a relationship where the following occur: no concerns reported Const General: cooperative, comfortable and no acute distress Orientation/consciousness: patient oriented x3 HENMT Head: Yes normocephalic and Yes atraumatic Eyes General: appearance normal, both eyes and all related structures Pupils: Equal, round and reactive pupils present EOM: EOMs intact bilaterally Neck Neck: Yes supple and No lymphadenopathy Thyroid: Thyroid normal Lymphatic: no lymphadenopathy noted Resp Effort & Inspection: normal respiratory effort and able to speak in complete sentences Auscultation: clear to auscultation bilaterally Cardio Heart sounds: S1 normal heart sound present and S2 normal heart sound present GI Palpation (GI): Soft to palpation and nontender Auscultation: normal bowel sounds General: Yes no CVA tenderness Back/Spine/Pelvis Back: no CVA tenderness Skin General skin exam: elasticity normal and turgor normal Neuro General: patient oriented x3 and gait normal Cranial nerves: Yes Equal, round and reactive pupils present Speech: No Abnormal speech present Sensory Exam: No Sensory deficit (Neuro) Coordination: tandem gait normal and Romberg test negative Extrem General: Yes normal exam except as noted and No edema Assessment and Plan Assessment & Plan (1) Encounter for general adult medical examination with abnormal findings: Code(s): Z00.01 - Encounter for general adult medical examination with abnormal findings (2) LFT elevation: Code(s): R79.89 - Other specified abnormal findings of blood chemistry (3) Depression, major, severe recurrence: Code(s): F33.2 - Major depressive disorder, recurrent severe without psychotic features Qualifiers: Psychotic features: without psychotic features Qualified Code(s): F33.2 - Major depressive disorder, recurrent severe without psychotic features (4) Anxiety, generalized: Code(s): F41.1 - Generalized anxiety disorder Plan Physical exam appointment Labs done recently reviewed with the patient Alkaline phosphatase is slightly elevated we will be repeating liver enzymes again in 2 months Patient has appointment with OBGYN come up 01 of July Anxiety stable with fluoxetine 40 mg Follow-up August Orders: Orders Liver Panel Today R79.89 - Other specified abnormal findings of blood chemistry Coding Level of Care Code Est Pt Prev Care 18-39y(99854) Diagnoses Encounter for general adult medical examination with abnormal findings Z00.01 LFT elevation R79.89 Severe episode of recurrent major depressive disorder, without psychotic features F33.2 Psychotic features: without psychotic features Anxiety, generalized F41.1 Additional Codes TIM-7 Assessment Billing - TIM-7 Assessment Tool: TIM-7 Assessment [id number] ([id number])
[2023-05-20 12:06] VITALS: BP 120/72; PULSE 65; O2SAT 99; BMI 34.2
== END 2023-05-20 12:27 | disposition home or self-care (01) ==
PROVIDERS: PCP Internal Medicine; Visit Provider Internal Medicine
DX: Z00.00 Encounter for general adult medical examination without abnormal findings (principal); R79.89 Other specified abnormal findings of blood chemistry; F33.2 Major depressive disorder, recurrent severe without psychotic features; F41.1 Generalized anxiety disorder
CPT/HCPCS: 99395

== ENCOUNTER 2023-08-14 08:44 | Outpatient (AMB) | payer BC, SELFPAY ==
[2023-08-14 08:48] VITALS: BP 126/70; PULSE 75; TEMP 36.6; O2SAT 98; BMI 33.5
--- NOTE | 2023-08-14 08:48 | AM.OFFWIN_ITS ---
Intake Vital Signs 08/14/23 08:48 Height 5 ft 2 in Weight 183 lb BMI 33.5 BP 126/70 Blood Pressure Location Lt brachial Position Sitting Pulse 75 Pulse Source Pulse Oximeter Temp 97.9 F Temp Source Temporal Artery Scan Pulse Oximetry (%) 98 Oxygen Delivery Method Room Air Intake Visit Reasons: EP Lower back pain/?UTI Intake Note: pt is here today for lower back pain/ UTI started friday Patient Tobacco Use Status: Current everyday Tobacco user Allergies No Known Allergies [No Known Allergies*] Allergy (Verified 08/14/23 08:49) Do you need a note to return to daycare/school/sports/work: Yes HPI HPI Comments History of Present Illness Details This is a 27-year-old female with a past medical history of anxiety and depression presenting for lower back pain since Friday. Pt is sexually active with 2 different partners, no condoms. She has an IUD now, due for replacement. She report vaginal discharge, but denies burning with urination. Denies hematuria. Denies pelvic pain PFSH Medical History Anxiety, generalized Depression, major, recurrent, moderate Surgical History No pertinent past surgical history Family History Father No problems noted. Mother No problems noted. Paternal Grandfather Cancer Brother No problems noted. Brother No problems noted. Other Mental health disorder Substance use disorder Social History Household Members: Significant Other Housing: Apartment Alcohol intake: current Alcohol intake frequency: 0-2 drinks per day Patient Tobacco Use Status: Current everyday Tobacco user Cigarettes Per Day: 7 Years Smoked: Since age 18 e-Cigarette/Vaping Use: Never Used Substance Use Type: Crack/Cocaine Current occupational status: employed Cognitive needs: No Hearing needs: No Vision needs: No Review of Systems Const All systems reviewed & are unremarkable except as noted in HPI and below Physical Exam Vital Signs: Last Vital Signs Temp 97.9 F 08/14/23 08:48 Pulse 75 08/14/23 08:48 BP 126/70 08/14/23 08:48 Pulse Ox 98 08/14/23 08:48 Oxygen Delivery Method Room Air 08/14/23 08:48 BMI result Body Mass Index 33.5 GI Inspection: Yes obesity Palpation (GI): No hepatosplenomegaly present Auscultation: normal bowel sounds Rectal Exam - Female: deferred General: Yes Bimanual renal exam normal bilaterally, Yes bladder normal to inspection, Yes CVA tenderness and Yes no CVA tenderness External Female Exam: normal external appearance, No erythema, No lesion and No tender Speculum Exam - Vagina: abnormal vaginal discharge white and malodorous, not erythematous and No vaginal bleeding Speculum Exam - Cervix: normal palpation, Cervical os open, no lesions and nontender Bimanual exam- vagina & uterus: uterine size normal, normal palpation and No Cervical tenderness present Bimanual Exam- Adnexa, other: normal adnexae OB/external & speculum: Cervical os open; No vaginal bleeding Back/Spine/Pelvis Back: no CVA tenderness and CVA tenderness Results AMB Urinalysis, Automated UA Leukoctes 500 Moody/uL Last Edit by Naun Brower CMA on 08/14/23 09:2 8 UA Nitrite Negative Last Edit by Naun Brower CMA on 08/14/23 09:28 UA Urobilinogen 0.2 mg/dL Last Edit by Naun Brower CMA on 08/14/23 09 :28 UA Protein 30 mg/dL Last Edit by Naun Brower CMA on 08/14/23 09:28 UA pH 7.0 Last Edit by Naun Brower CMA on 08/14/23 09:28 UA Blood 80 Mayito/uL Last Edit by Naun Brower CMA on 08/14/23 09:28 UA Specific Curtis 1.015 Last Edit by Naun Brower CMA on 08/14/23 09:28 UA Ketone Negative Last Edit by Naun Brower CMA on 08/14/23 09:28 UA Bilirubin 0 mg/dL Last Edit by Naun Brower CMA on 08/14/23 09:28 UA Glucose 0 mg/dL Last Edit by Naun Brower CMA on 08/14/23 09:28 Results Reviewed Results Reviewed: Laboratory Last Values Urine pH (Auto) 7.0 08/14/23 09:27 Specific Curtis (Auto) 1.015 08/14/23 09:27 Urine Protein (Auto) 30 mg/dL 08/14/23 09:27 Glucose (UA)(Auto) 0 mg/dL 08/14/23 09:27 Urine Ketones (Auto) Negative 08/14/23 09:27 Urine Blood (Auto) 80 Mayito/uL 08/14/23 09:27 Urine Nitrite (Auto) Negative 08/14/23 09:27 Urine Bilirubin (Auto) 0 mg/dL 08/14/23 09:27 Urine Urobilinogen (Auto) 0.2 mg/dL 08/14/23 09:27 Leukocyte Esterase (Auto) 500 Moody/uL 08/14/23 09:27 Assessment & Plan Assessment & Plan (1) Vaginitis and vulvovaginitis: Code(s): N76.0 - Acute vaginitis Plan: - BV/yeast present, will treat today - Swabs sent (2) Screening examination for STI: Code(s): Z11.3 - Encounter for screening for infections with a predominantly sexual mode of transmission Plan: - due to multiple partners - CT/NG/ TM - Use protection - Have IUD changed with [employer] - Abstain from intercourse for 7 days. (3) Cystitis: Code(s): N30.90 - Cystitis, unspecified without hematuria Plan: - Abx for 7 days - hydrate well with plenty of water. Orders: Orders AMB Urinalysis Automated Today Z13.9 - Encounter for screening, unspecified SureSwab Bacterial Vaginosis Today N76.0 - Acute vaginitis, Z11.3 - Encounter for screening for infections with a predominantly sexual mode of transmission Urine Culture Today N30.90 - Cystitis, unspecified without hematuria SureSwab BV CT/NG TMA Today N76.0 - Acute vaginitis, Z11.3 - Encounter for screening for infections with a predominantly sexual mode of transmission Medications: New metronidazole 500 mg PO BID 7 days 14 tabs 0RF N76.0 - Acute vaginitis fluconazole TAKE 1 TABLET NOW, MAY TAKE SECOND DOSE IN 3 DAYS 150 mg PO DAILY 2 tabs 0RF N76.0 - Acute vaginitis ciprofloxacin HCl (Cipro) 500 mg PO BID 7 days 14 tabs 0RF N30.90 - Cystitis, unspecified without hematuria Coding Level of Care Code Est Pt Level 4 (48138) Diagnoses Vaginitis and vulvovaginitis N76.0 Screening examination for STI Z11.3 Cystitis N30.90 Time Spent (min) 20 Comment performed pelvic examination with speculum insertion
== END 2023-08-14 10:10 | disposition home or self-care (01) ==
PROVIDERS: PCP Internal Medicine; Visit Provider Nurse Practitioner Family
DX: N76.0 Acute vaginitis (principal); Z11.3 Encounter for screening for infections with a predominantly sexual mode of transmission; N30.90 Cystitis, unspecified without hematuria
CPT/HCPCS: 81003; 99214

== ENCOUNTER 2023-08-14 11:38 | Outpatient (REF) | payer BC, SELFPAY ==
[2023-08-14 13:37] LABS: CT PCR NOT DETECTED (Not Detect.); NG PCR NOT DETECTED (Not Detect.)
== END 2023-08-14 11:39 | disposition home or self-care (01) ==
LOC: HO.HMGCLNP 11:38
PROVIDERS: Visit Provider Nurse Practitioner Family
DX: N30.90 Cystitis, unspecified without hematuria (principal); Z20.2 Contact with and (suspected) exposure to infections with a predominantly sexual mode of transmission
CPT/HCPCS: 0353U; 87086; 87088; 87186; 87480; 87510; 87660

== ENCOUNTER 2023-10-06 11:12 | Emergency (ER) | payer BC, SELFPAY ==
--- NOTE | ~2023-10-06 | CT_ITS ---
EXAMINATION: CT HEAD WITHOUT CONTRAST CLINICAL INFORMATION: Ipsilateral pupillary dilation. Question bleed. COMPARISON: No relevant prior imaging. TECHNIQUE: Contiguous axial imaging was performed from the skull base to vertex without intravenous administration of contrast. This CT examination was performed using dose optimization techniques as appropriate, variously including the following: *Automated exposure control *Adjustment of mA and/or kV according to patient size (this includes techniques or standardized protocols for targeted exams where dose is matched to indication/reason for exam; i.e. extremities or head) *Use of iterative reconstruction technique DLP: 555 mGy-cm FINDINGS: There is no acute intracranial hemorrhage or abnormal extra-axial collection. No intracranial mass effect or midline shift. Lateral and third ventricles are normal. No hydrocephalus. Dominguez-white matter differentiation is preserved and there is no evidence of acute territorial infarct. The calvarium and skull base are intact. There are multiple epidermal inclusion cysts within the scalp. No mastoid middle ear effusion. No active paranasal sinus disease. CT/CT head/brain wo IV con IMPRESSION: Normal CT scan of the head.
--- NOTE | ~2023-10-06 | CT_ITS ---
EXAMINATION: CT ANGIO HEAD NECK CLINICAL INFORMATION: Right pupillary dilatation. Right and pressure. COMPARISON: CT head 10/06/2023. TECHNIQUE: Tableau Administrator images were obtained. A CT angiogram of the head and neck was performed in the arterial phase after the intravenous administration of 70 mL Omnipaque 350. Delayed postcontrast images of the head were also obtained. 3D images were processed on an independent workstation under concurrent supervision. Arterial stenoses are measured in accordance with NASCET criteria or similar method if applicable. This CT examination was performed using dose optimization techniques as appropriate, including one or more of the following: Automated exposure control, iterative reconstruction, and adjustment of technique factors (mA and/or kVp) according to patient size (this includes techniques or standardized protocols for targeted exams where dose is matched to indication/reason for exam). Fleischner Society criteria for the followup of incidental pulmonary nodules was implemented if appropriate. Total exam dose-length product 1306 mGy-cm FINDINGS: Head: Postcontrast images reveal no abnormal intracranial mass or enhancement. There is no intracranial mass effect or midline shift. No abnormal extra axial collection. Lateral and third ventricles are normal. No hydrocephalus. Dominguez-white matter differentiation is preserved and there is no evidence of acute territorial infarct. The calvarium and skull base are intact. Mastoid air cells and middle ear cavities are well aerated. No active paranasal sinus disease. CT angiogram neck: The aortic arch apex is normal. Origins of the major aortic branches are widely patent. Common carotid arteries and carotid bifurcations are normal. No stenosis of the extracranial internal carotid arteries. The cervical segments of the vertebral arteries are patent. CT angiogram head: Intracranial internal carotid arteries are normal. Intradural vertebral segments and basilar artery are normal. Anterior, middle, and posterior cerebral complexes are normal. No intracranial large vessel occlusion. No identifiable aneurysm or high flow vascular lesion. Other: Soft tissues of the neck including the thyroid gland are normal. There are no pathologically enlarged cervical lymph nodes. Lung apices are clear. No acute osseous finding. CT/CT angio head neck IMPRESSION: Normal CT angiogram of the head and neck. No stenosis of the cervical carotid or vertebral arteries. No intracranial large vessel occlusion. No evidence of acute territorial infarct. No abnormal intracranial mass or enhancement.
[2023-10-06 12:37] VITALS: BP 119/72; PULSE 74; RESP 20; TEMP 37.1; O2SAT 99; BMI 32.0
--- NOTE | 2023-10-06 12:54 | ED_ITS ---
HPI - General Adult General Chief complaint: Eye Problems Stated complaint: r eye throbing Time Seen by Provider: 10/06/23 12:53 Source: patient Mode of arrival: ambulatory Limitations: no limitations History of Present Illness HPI narrative: Patient is a 28 year old assigned female at with a history of anxiety and depression presenting to the emergency department today with right sided pupillary dilatation. Patient states that 1.5 hours prior to her arrival in the department, her right eye began to have pressure and she noticed her pupil was dilated. Patient denies any dizziness, lightheadedness, abdominal pain, nausea, vomiting, fever, chills, blurry vision, double vision, loss of vision, chest pain, difficulty breathing, shortness of breath, back pain, night sweats, pain with urination, increased urinary frequency, increased urinary urgency, blood in her urine or stool, syncope or a near syncopal episode, recent trauma or falls, bowel incontinence, bladder incontinence, bowel retention, bladder retention, or any other complaints at this time. Onset (ago): hour(s) (1.5) Location: eyes and right Severity: mild Relieving factors: none Exacerbating factors: none Associated symptoms: denies other symptoms Treatments prior to arrival: none Related Data Previous Rx's ?Medication ?Instructions ?Recorded ciprofloxacin HCl 500 mg tablet 500 mg PO BID 7 days #14 tabs 08/14/23 (Cipro) fluconazole 150 mg tablet 150 mg PO DAILY #2 tabs 08/14/23 metronidazole 500 mg tablet 500 mg PO BID 7 days #14 tabs 08/14/23 fluoxetine 40 mg capsule 40 mg PO DAILY 90 days #90 caps 08/22/23 Allergies Allergy/AdvReac Type Severity Reaction Status Date / Time No Known Allergies Allergy Verified 10/06/23 12:40 [No Known Allergies*] Review of Systems 2 Constitutional: Constitutional: Reports no additional constitutional complaints, Denies chills, Denies fever(s) and Denies night sweats Eyes: Eyes: Reports no additional eye complaints, Denies blurry vision, Denies change in vision, Denies diplopia, Denies eye discharge, Denies loss of vision and Reports eye pain (behind right eye) Comments: right pupil dilatation ENT: Denies dizziness Cardiovascular: Cardiovascular: Reports no additional cardiovascular complaints, Denies chest pain, Denies lightheadedness, Denies Loss of Consciousness and Denies dyspnea Respiratory: Respiratory: Reports no additional respiratory complaints and Denies dyspnea Gastrointestinal: Gastrointestinal: Reports no additional gastrointestinal complaints, Denies abdominal pain, Denies melena, Denies hematochezia, Denies change in bowel habits and Denies change in stool character Genitourinary: Genitourinary: Denies hematuria, Denies urinary frequency, Denies dysuria, Denies urinary incontinence, Denies urinary hesitancy and Denies urinary urgency Musculoskeletal: Musculoskeletal: Reports no additional musculoskeletal complaints, Denies numbness and Denies tingling Neurologic: Denies dizziness, Denies loss of vision, Denies numbness and Denies tingling Psychiatric: Psychiatric: Reports no additional psychiatric complaints Endocrine: Endocrine: Reports no additional endocrine complaints Hematologic/Lymphatic: Hematologic/Lymphatic: Reports no additional hematologic/lymphatic complaints Allergic/Immunologic: Allergic/Immunologic: Reports no additional allergic/immunologic complaints PMFSH Past Medical History Attestation statement: The following information was validated with the patient. Source: old records reviewed and nursing notes reviewed Medical History Anxiety, generalized Depression, major, recurrent, moderate Surgical History No pertinent past surgical history Family History Family History Father No problems noted. Mother No problems noted. Paternal Grandfather Cancer Brother No problems noted. Brother No problems noted. Other Mental health disorder Substance use disorder Social History Social History Household Members: Significant Other Housing: Apartment Alcohol intake: current Alcohol intake frequency: 0-2 drinks per day Patient Tobacco Use Status: Current everyday Tobacco user Cigarettes Per Day: 7 Years Smoked: Since age 18 e-Cigarette/Vaping Use: Never Used Substance Use Type: Crack/Cocaine Advance Directives: No Advance Directives Information Provided: No Current occupational status: employed Cognitive needs: No Hearing needs: No Vision needs: No Physical Exam ED Vital Signs: Vital Signs - 24 hr 10/06/23 12:37 10/06/23 13:05 10/06/23 19:16 Temperature 98.7 F 98.1 F 98.5 F Pulse Rate 74 63 88 Respiratory Rate 20 20 14 Blood Pressure 119/72 119/63 129/83 Pulse Oximetry 99 99 99 Oxygen Delivery Method Room Air Room Air Room Air 10/06/23 19:45 Temperature 98.5 F Pulse Rate 88 Respiratory Rate 14 Blood Pressure 129/83 Pulse Oximetry 99 Oxygen Delivery Method Room Air BMI result Body Mass Index 32.0 Const General: cooperative, no acute distress, alert and awake Nutritional Appearance: well nourished Orientation/consciousness: patient oriented x3 Limitations: no limitations HENMT Head: Yes normal to inspection and Yes atraumatic Ears: hearing grossly normal bilaterally and external ears normal General nose exam: Normal external nose present, no nasal discharge noted and no epistaxis Face and sinus: Yes normal facial exam, No abrasion and No laceration Mouth: Normal oral and palatal mucosa present, no drooling and no muffled voice Eyes Periorbital: periorbital findings normal Eyelids: Yes eyelids normal Conjunctivae: conjunctivae normal Pupils: Pupils anisocoria (right pupil still reactive to light) right pupil size greater than left, Irregular pupils on the right and Pupil size comments on the right (larger than left) EOM: EOMs intact bilaterally Neck Neck: Yes normal visual inspection, Yes full ROM and Yes no lymphadenopathy Chest Chest palpation & inspection: normal inspection of the chest Resp Effort & Inspection: normal respiratory effort and able to speak in complete sentences GI Inspection: Yes normal to inspection Neuro General: patient oriented x3 and moves all extremities Cognition (Neuro): normal cognition Motor exam (neuro): 5/5 motor strength present throughout Sensory Exam: Normal double simultaneous stimulation for sensation Coordination: [id number] test normal Extrem General: Yes normal to inspection, Yes full ROM and Yes capillary refill normal Psych Appearance: grossly normal Mental Status: mental status grossly normal Affect: normal affect Attitude: cooperative Thought process: Normal thought process present Thought content: Normal thought content present Insight: Good insight present (Psych) Course Reevaluation(s) Reevaluation #1: CTA of head and neck normal. Patient informed to follow-up with biomedical specialist. Patient explained worrisome sign informed to return to the ED if she has them. Time: 19:36 Medications Administered Discontinued Medications Generic Name Dose Route Start Last Admin Trade Name Freq PRN Reason Stop Dose Admin Iohexol 100 ml 10/06/23 18:14 10/06/23 18:14 Iohexol 350 Mg/Ml 100 Ml Infus..Btl IV 04/08/24 18:15 70 ml ONCE ONE Administration Medical Decision Making Medical Decision Making [facility] Narrative: Patient is a 28 year old assigned female at with a medical history of anxiety and depression presenting to the emergency department today with right eye pressure and a dilated right pupil. Patient's physical exam was as noted in the physical exam portion of this note. Patient's blood work was unremarkable. Patient's CT head showed no acute process. Patient's CTA of the head/neck is pending. I explained my physical exam findings as well as all test results to the patient and the patient's mother. I answered all questions asked by the patient and the patient's mother. Patient's disposition pending CTA reading. Patient signed out to evening LEXIE. Differential Diagnosis Differential Diagnoses: The differential diagnosis associated with the presentation includes Aneurysm Optic nerve injury Intracranial abnormality Idiopathic pupillary dilatation Admission/Observation Consideration of admission/observation: Escalation of care including admission/observation considered Patient's disposition will be determined after CTA. Lab Data [facility] Lab Attestation statement: I reviewed the patient's lab results. My interpretation of these results are in the MDM Rationale portion of this note. 10/06/23 17:15 10/06/23 17:15 Labs: Lab Results 10/06/23 Range/Units 17:15 WBC 12.2 H (4.8-10.8) X10*3/uL RBC 4.88 (4.20-5.50) X10*6/uL Hgb 14.1 (12.0-16.0) g/dl Hct 42.6 (37.0-47.0) % MCV 87.3 (80.0-98.0) fL MCH 28.9 (27.0-33.0) pg MCHC 33.1 (31.0-35.0) g/dl RDW 13.5 (11.0-16.0) % Plt Count 385 (160-400) X10*3/uL MPV 9.5 (9.4-12.3) fL Immature Gran % (Auto) Cancelled Neut % (Auto) Cancelled Lymph % (Auto) Cancelled Long % (Auto) Cancelled Eos % (Auto) Cancelled Baso % (Auto) Cancelled Lymph # (Auto) Cancelled Long # (Auto) Cancelled Eos # (Auto) Cancelled Baso # (Auto) Cancelled Abs Immat Gran (auto) Cancelled Absolute Neuts (auto) Cancelled Absolute Nucleated RBC 0.000 (0.0-0.012) X10*3/uL Nucleated RBC % (auto) 0.0 (0.0-0.2) /100WBC Neutrophils % (Manual) 53 (45-73) % Lymphocytes % (Manual) 33 (20-40) % Atypical Lymphs % (Man) 6 (0-6) % Monocytes % (Manual) 7 (2-11) % Eosinophils % (Manual) 1 (0-4) % Abs Neuts (Manual) 6.5 (2.0-8.3) X10*3/uL Lymphocytes # (Manual) 4.0 (1.2-4.9) X10*3/uL Atyp Lymphs # (Manual) 0.7 x10*3/uL Monocytes # (Manual) 0.9 (0.1-1.2) X10*3/uL Eosinophils # (Manual) 0.1 (0.0-0.4) X10*3/uL Platelet Estimate NORMAL (NORMAL) Plt Morphology Comment NORMAL RBC Morphology NORMAL PT 11.9 (11.1-13.3) SEC INR 1.0 (0.9-1.1) APTT 29.7 (26.0-36.8) SEC Sodium 138 (135-145) mmol/L Potassium 4.0 (3.3-5.1) mmol/L Chloride 106 (96-108) mmol/L Carbon Dioxide 25 (22-29) mmol/L Anion Gap 11 L (12-20) BUN 6 L (9-16) mg/dL Creatinine 0.73 (0.5-1.4) mg/dL Estim Creat Clear Calc 109.9 Estimated GFR > 60 Random Glucose 91 (60-115) mg/dL Calcium 9.5 (8.4-10.2) mg/dL Magnesium 2.2 (1.6-2.6) mg/dL Total Bilirubin 0.3 (0.0-1.0) mg/dL AST 16 (5-31) U/L ALT 13 (0-31) U/L Alkaline Phosphatase 123 H (39-117) U/L Total Protein 7.9 (6.5-8.0) g/dL Albumin 4.1 (3.5-5.0) g/dL Beta HCG, Quant < 2 mIU/mL Independent Interpretation I performed an independent interpretation of an: CT Scan Interpretation: My interpretation is in agreement with the radiologist's impression of this imaging study. - EXAMINATION: CT HEAD WITHOUT CONTRAST CLINICAL INFORMATION: Ipsilateral pupillary dilation. Question bleed. COMPARISON: No relevant prior imaging. TECHNIQUE: Contiguous axial imaging was performed from the skull base to vertex without intravenous administration of contrast. This CT examination was performed using dose optimization techniques as appropriate, variously including the following: *Automated exposure control *Adjustment of mA and/or kV according to patient size (this includes techniques or standardized protocols for targeted exams where dose is matched to indication/reason for exam; i.e. extremities or head) *Use of iterative reconstruction technique DLP: 555 mGy-cm FINDINGS: There is no acute intracranial hemorrhage or abnormal extra-axial collection. No intracranial mass effect or midline shift. Lateral and third ventricles are normal. No hydrocephalus. Dominguez-white matter differentiation is preserved and there is no evidence of acute territorial infarct. The calvarium and skull base are intact. There are multiple epidermal inclusion cysts within the scalp. No mastoid middle ear effusion. No active paranasal sinus disease. CT/CT head/brain wo IV con IMPRESSION: Normal CT scan of the head. Dictated By: Michel Barone MD Signed By: Electronically signed by Michel Barone MD 10/06/23 0287 Radiology Impression Discussion of test interpretation with radiology: I have reviewed the radiologist's reading. Independent Historian Clinical information obtained from an independent historian. History obtained from or confirmed by: Parent (patient's mother provided additional history and confirmed the history provided by the patient.) Critical Care Time Critical Care Time Critical Care Time: Yes Total Critical Care Time: 87 Attestation: I spent 87 minutes of Critical Care Time with this patient. This does not include time spent on separately reported billable procedures. Discharge Plan Discharge Clinical Impression: Mydriasis Patient Disposition: Home, Self-Care Instructions: Eye Pain (ED) Additional Instructions: CT scan of the head and neck came back normal and negative for any bleed, stroke, or brain tumor. Recommend follow-up with eye doctor to re-evalaute of pupils. Return to the ED immediately for change in vision, blurry vision, loss of vision, headache, eye pain, eye redness, dizziness, nausea, vomiting, fever, chills, or any other concerning symptoms. Prescriptions: No Action fluoxetine 40 mg capsule 40 mg PO DAILY 90 Days Qty: 90 0RF ciprofloxacin HCl [Cipro] 500 mg tablet 500 mg PO BID 7 Days Qty: 14 0RF metronidazole 500 mg tablet 500 mg PO BID 7 Days Qty: 14 0RF fluconazole 150 mg tablet 150 mg PO DAILY Qty: 2 0RF Rx Instructions: TAKE 1 TABLET NOW, MAY TAKE SECOND DOSE IN 3 DAYS Referrals: Bry Barfield [Physician] - (Right eye Mydriasis) Stand Alone Forms: Work/School Release Interventions: ED Discharge Assessment Last Done: 10/06/23 19:45 Discharge Date/Time: 10/06/23 19:45 Print Language: Panamanian
--- NOTE | 2023-10-06 12:55 | ED_ITS ---
HPI - General Adult General Chief complaint: Eye Problems Stated complaint: r eye throbing Time Seen by Provider: 10/06/23 12:53 History of Present Illness HPI narrative: Seen by ALEJANDRA Ulrich - refer to her note from 10/06/2023. Related Data Previous Rx's ?Medication ?Instructions ?Recorded ciprofloxacin HCl 500 mg tablet 500 mg PO BID 7 days #14 tabs 08/14/23 (Cipro) fluconazole 150 mg tablet 150 mg PO DAILY #2 tabs 08/14/23 metronidazole 500 mg tablet 500 mg PO BID 7 days #14 tabs 08/14/23 fluoxetine 40 mg capsule 40 mg PO DAILY 90 days #90 caps 08/22/23 Allergies Allergy/AdvReac Type Severity Reaction Status Date / Time No Known Allergies Allergy Verified 10/06/23 12:40 [No Known Allergies*] PMFSH Past Medical History Medical History Anxiety, generalized Depression, major, recurrent, moderate Surgical History No pertinent past surgical history Family History Family History Father No problems noted. Mother No problems noted. Paternal Grandfather Cancer Brother No problems noted. Brother No problems noted. Other Mental health disorder Substance use disorder Social History Social History Household Members: Significant Other Housing: Apartment Alcohol intake: current Alcohol intake frequency: 0-2 drinks per day Patient Tobacco Use Status: Current everyday Tobacco user Cigarettes Per Day: 7 Years Smoked: Since age 18 e-Cigarette/Vaping Use: Never Used Substance Use Type: Crack/Cocaine Advance Directives: No Advance Directives Information Provided: No Current occupational status: employed Cognitive needs: No Hearing needs: No Vision needs: No Physical Exam ED Vital Signs: Vital Signs - 24 hr 10/06/23 12:37 10/06/23 13:05 10/06/23 19:16 Temperature 98.7 F 98.1 F 98.5 F Pulse Rate 74 63 88 Respiratory Rate 20 20 14 Blood Pressure 119/72 119/63 129/83 Pulse Oximetry 99 99 99 Oxygen Delivery Method Room Air Room Air Room Air 10/06/23 19:45 Temperature 98.5 F Pulse Rate 88 Respiratory Rate 14 Blood Pressure 129/83 Pulse Oximetry 99 Oxygen Delivery Method Room Air BMI result Body Mass Index 32.0 Course Course Course Narrative: RME: Cardio female presents to ED for right ipsilateral people dilation without any trauma. Patient states felt I bulging and hour ago. Patient denies any change in vision. Patient states eye throbbing. Patient denies any eye redness, dizziness, headache or any recent head trauma. Tonometry pressure in both eyes on 9. Head CT scan ordered. Patient placed in [facility] Medications Administered Discontinued Medications Generic Name Dose Route Start Last Admin Trade Name Freq PRN Reason Stop Dose Admin Iohexol 100 ml 10/06/23 18:14 10/06/23 18:14 Iohexol 350 Mg/Ml 100 Ml Infus..Btl IV 10/06/23 18:15 70 ml ONCE ONE Administration Medical Decision Making Lab Data 10/06/23 17:15 10/06/23 17:15 Labs: Lab Results 10/06/23 Range/Units 17:15 WBC 12.2 H (4.8-10.8) X10*3/uL RBC 4.88 (4.20-5.50) X10*6/uL Hgb 14.1 (12.0-16.0) g/dl Hct 42.6 (37.0-47.0) % MCV 87.3 (80.0-98.0) fL MCH 28.9 (27.0-33.0) pg MCHC 33.1 (31.0-35.0) g/dl RDW 13.5 (11.0-16.0) % Plt Count 385 (160-400) X10*3/uL MPV 9.5 (9.4-12.3) fL Immature Gran % (Auto) Cancelled Neut % (Auto) Cancelled Lymph % (Auto) Cancelled Ellis % (Auto) Cancelled Eos % (Auto) Cancelled Baso % (Auto) Cancelled Lymph # (Auto) Cancelled Ellis # (Auto) Cancelled Eos # (Auto) Cancelled Baso # (Auto) Cancelled Abs Immat Gran (auto) Cancelled Absolute Neuts (auto) Cancelled Absolute Nucleated RBC 0.000 (0.0-0.012) X10*3/uL Nucleated RBC % (auto) 0.0 (0.0-0.2) /100WBC Neutrophils % (Manual) 53 (45-73) % Lymphocytes % (Manual) 33 (20-40) % Atypical Lymphs % (Man) 6 (0-6) % Monocytes % (Manual) 7 (2-11) % Eosinophils % (Manual) 1 (0-4) % Abs Neuts (Manual) 6.5 (2.0-8.3) X10*3/uL Lymphocytes # (Manual) 4.0 (1.2-4.9) X10*3/uL Atyp Lymphs # (Manual) 0.7 x10*3/uL Monocytes # (Manual) 0.9 (0.1-1.2) X10*3/uL Eosinophils # (Manual) 0.1 (0.0-0.4) X10*3/uL Platelet Estimate NORMAL (NORMAL) Plt Morphology Comment NORMAL RBC Morphology NORMAL PT 11.9 (11.1-13.3) SEC INR 1.0 (0.9-1.1) APTT 29.7 (26.0-36.8) SEC Sodium 138 (135-145) mmol/L Potassium 4.0 (3.3-5.1) mmol/L Chloride 106 (96-108) mmol/L Carbon Dioxide 25 (22-29) mmol/L Anion Gap 11 L (12-20) BUN 6 L (9-16) mg/dL Creatinine 0.73 (0.5-1.4) mg/dL Estim Creat Clear Calc 109.9 Estimated GFR > 60 Random Glucose 91 (60-115) mg/dL Calcium 9.5 (8.4-10.2) mg/dL Magnesium 2.2 (1.6-2.6) mg/dL Total Bilirubin 0.3 (0.0-1.0) mg/dL AST 16 (5-31) U/L ALT 13 (0-31) U/L Alkaline Phosphatase 123 H (39-117) U/L Total Protein 7.9 (6.5-8.0) g/dL Albumin 4.1 (3.5-5.0) g/dL Beta HCG, Quant < 2 mIU/mL Discharge Plan Discharge Clinical Impression: Mydriasis Patient Disposition: Home, Self-Care Instructions: Eye Pain (ED) Additional Instructions: CT scan of the head and neck came back normal and negative for any bleed, stroke, or brain tumor. Recommend follow-up with eye doctor to re-evalaute of pupils. Return to the ED immediately for change in vision, blurry vision, loss of vision, headache, eye pain, eye redness, dizziness, nausea, vomiting, fever, chills, or any other concerning symptoms. Prescriptions: No Action fluoxetine 40 mg capsule 40 mg PO DAILY 90 Days Qty: 90 0RF ciprofloxacin HCl [Cipro] 500 mg tablet 500 mg PO BID 7 Days Qty: 14 0RF metronidazole 500 mg tablet 500 mg PO BID 7 Days Qty: 14 0RF fluconazole 150 mg tablet 150 mg PO DAILY Qty: 2 0RF Rx Instructions: TAKE 1 TABLET NOW, MAY TAKE SECOND DOSE IN 3 DAYS Referrals: Bry Barfield [Physician] - (Right eye Mydriasis) Stand Alone Forms: Work/School Release Interventions: ED Discharge Assessment Last Done: 10/06/23 19:45 Discharge Date/Time: 10/06/23 19:45 Print Language: Malawian
[2023-10-06 13:05] VITALS: BP 119/63; PULSE 63; RESP 20; TEMP 36.7; O2SAT 99
--- NOTE | 2023-10-06 17:14 | PC.NURSE ---
attempted IV, patient began vomiting during the insertion, unable to access
[2023-10-06 17:28] LABS: Prothrombin Time 11.9 SEC (11.1-13.3)
[2023-10-06 17:31] LABS: Partial Thromboplastin Time 29.7 SEC (26.0-36.8)
[2023-10-06 17:36] LABS: Alanine Aminotransferase 13 U/L (0-31); Albumin Level 4.1 g/dL (3.5-5.0); Alkaline Phosphatase 123 U/L (39-117); Anion Gap 11 (12-20); Aspartate Amino Transferase 16 U/L (5-31); Bilirubin Total 0.3 mg/dL (0.0-1.0); Blood Urea Nitrogen 6 mg/dL (9-16); Calcium 9.5 mg/dL (8.4-10.2); Carbon Dioxide 25 mmol/L (22-29); Chloride 106 mmol/L (96-108); Creatinine Clr Calc Pharmacy 109.9; Estimated Glomerular Filt Rate > 60; Glucose Random 91 mg/dL (60-115); Magnesium 2.2 mg/dL (1.6-2.6); Sodium 138 mmol/L (135-145); Total Protein 7.9 g/dL (6.5-8.0)
[2023-10-06 17:39] LABS: Hematocrit 42.6 % (37.0-47.0); Hemoglobin 14.1 g/dl (12.0-16.0); Mean Corpuscular HGB Conc 33.1 g/dl (31.0-35.0); Mean Corpuscular Hemoglobin 28.9 pg (27.0-33.0); Mean Corpuscular Volume 87.3 fL (80.0-98.0); Mean Platelet Volume 9.5 fL (9.4-12.3); Platelet Count 385 X10*3/uL (160-400); Red Blood Count 4.88 X10*6/uL (4.20-5.50); Red Cell Distribution Width 13.5 % (11.0-16.0); White Blood Count 12.2 X10*3/uL (4.8-10.8)
[2023-10-06 18:07] LABS: Atypical Lymph Absolute Manual 0.7 x10*3/uL; Atypical Lymphs Percent Manual 6 % (0-6); Eosinophils Absolute Manual 0.1 X10*3/uL (0.0-0.4); Eosinophils Percent Manual 1 % (0-4); Lymphocytes Percent Manual 33 % (20-40); Monocytes Absolute Manual 0.9 X10*3/uL (0.1-1.2); Monocytes Percent Manual 7 % (2-11); Neutrophils Percent Manual 53 % (45-73); Platelet Estimate NORMAL (NORMAL); Platelet Morphology Comment NORMAL; RBC Morphology NORMAL
[2023-10-06 18:08] LABS: Neutrophils Absolute Manual 6.5 X10*3/uL (2.0-8.3)
[2023-10-06] MEDS: iohexoL 350 MG/ML 100 ML INFUS..BTL IV (18:14)
[2023-10-06 18:40] LABS: HCG Quantitative < 2 mIU/mL
[2023-10-06 19:16] VITALS: BP 129/83; PULSE 88; RESP 14; TEMP 36.9; O2SAT 99
[2023-10-06 19:45] VITALS: BP 129/83; PULSE 88; RESP 14; TEMP 36.9; O2SAT 99
== END 2023-10-06 19:45 | disposition home or self-care (01) ==
PROVIDERS: Physician Assistant Medical; Emergency Provider Emergency Medicine; PCP Internal Medicine
DX: H57.04 Mydriasis (principal)
CPT/HCPCS: 36415; 70450; 70496; 70498; 80053; 83735; 84702; 85007; 85027; 85610; 85730; 99283; 99284; Q9967

== ENCOUNTER 2024-02-11 09:13 | Outpatient (AMB) | payer BC, SELFPAY ==
--- NOTE | 2024-02-11 09:15 | AM.OFFWIN_ITS ---
Intake Vital Signs 02/11/24 09:16 Height 5 ft 2 in Weight 172 lb BMI 31.5 BP 120/80 Blood Pressure Location Rt brachial Position Sitting Pulse 80 Pulse Source Pulse Oximeter Temp 98.4 F Temp Source Oral Pulse Oximetry (%) 98 Oxygen Delivery Method Room Air Intake Visit Reasons: EP- body aches, stuffy, took at home covid test Intake Note: Patient here because she tested herself yesterday for covid with at home test and was positive. Needs a work note. Patient Tobacco Use Status: Current everyday Tobacco user Allergies No Known Allergies [No Known Allergies*] Allergy (Verified 02/11/24 09:16) Do you need a note to return to daycare/school/sports/work: Yes HPI EP- body aches, stuffy, took at home covid test HPI Details This note is constructed using voice recognition software. While every effort has been made to ensure accuracy, automation sales manager errors may have been included. The patient is a 28 year old female who presents to the clinic today with positive COVID test at home on Friday and again yesterday. She notes that she had been around her boss who was positive for COVID, and after several days developed symptoms which started on FridayFebruary 06. She has been out of work Friday and Friday. She would like to return to work tomorrow. Initially she had body aches, fever, chills, sinus congestion. These symptoms have nearly completely resolved, and has not had a fever since the 1st day. [facility] Medical History Anxiety, generalized Depression, major, recurrent, moderate Surgical History No pertinent past surgical history Family History Father No problems noted. Mother No problems noted. Paternal Grandfather Cancer Brother No problems noted. Brother No problems noted. Other Mental health disorder Substance use disorder Social History Household Members: Significant Other Housing: Apartment Alcohol intake: current Alcohol intake frequency: 0-2 drinks per day Patient Tobacco Use Status: Current everyday Tobacco user Cigarettes Per Day: 7 Years Smoked: Since age 18 e-Cigarette/Vaping Use: Never Used Substance Use Type: Crack/Cocaine Current occupational status: employed Cognitive needs: No Hearing needs: No Vision needs: No Review of Systems Const All systems reviewed & are unremarkable except as noted in HPI and below Physical Exam Vital Signs: Last Vital Signs Temp 98.4 F 02/11/24 09:16 Pulse 80 02/11/24 09:16 BP 120/80 02/11/24 09:16 Pulse Ox 98 02/11/24 09:16 Oxygen Delivery Method Room Air 02/11/24 09:16 BMI result Body Mass Index 31.5 Const General: cooperative, healthy appearing, comfortable and no acute distress Orientation/consciousness: patient oriented x3 Limitations: no limitations HEENT Head: Yes normal to inspection Ears: hearing grossly normal bilaterally, external ears normal and TM's normal bilaterally General nose exam: Normal external nose present, Normal nares present and No nasal discharge present Face and sinus: Yes normal facial exam and Yes sinuses nontender Mouth: Normal oral and palatal mucosa present and moist mucous membranes Throat: Yes tonsils normal, Yes uvula midline and Yes posterior oropharynx abnormal (Erythema) Eyes General: appearance normal, both eyes and all related structures Neck Neck: Yes normal visual inspection Resp Effort & Inspection: normal respiratory effort, able to speak in complete sentences, Actively coughing, no respiratory distress, not tachypneic, no tripod positioning and no use of accessory muscles Auscultation: clear to auscultation bilaterally Cardio Jugular venous distension: no JVD Rate: regular rate Rhythm: regular rhythm Heart sounds: S1 normal heart sound present, S2 normal heart sound present, no click, no gallops, no murmurs and no rubs Skin General skin exam: no rashes or lesions noted, elasticity normal and turgor nor mal Neuro General: patient oriented x3 Extrem General: Yes normal to inspection and Yes no clubbing, cyanosis or edema Assessment & Plan Assessment & Plan (1) Coronavirus infection: Code(s): B34.2 - Coronavirus infection, unspecified Plan: Patient is improving since symptom onset, does not desire to be treated with antiviral therapy. Given that her symptoms are nearly resolved, she should be safe to return to work tomorrow. Provided letter for out of work from this past Friday through today. Reviewed CDC guidelines for quarantine, return to work, and mask wearing for additional 5 days for a total of 10 days since symptom onset. Advised patient to follow up with new or worsening symptoms with her primary care provider. Plan See above for full details and plan. Coding Level of Care Code Est Pt Level 3 (51949) Diagnoses Coronavirus infection B34.2
[2024-02-11 09:16] VITALS: BP 120/80; PULSE 80; TEMP 36.9; O2SAT 98; BMI 31.5
== END 2024-02-11 09:35 | disposition home or self-care (01) ==
PROVIDERS: PCP Internal Medicine; Visit Provider Registered Nurse
DX: B34.2 Coronavirus infection, unspecified (principal)
CPT/HCPCS: 99213